=== PATIENT | male | born 1975 | race Two or more races ===

== ENCOUNTER 2020-05-21 11:16 | Outpatient (REF) | payer OTHER, SELFPAY ==
--- NOTE | 2020-05-26 08:58 | MHC.AU.P13 ---
Adult Audiological Evaluation Date of Visit: 05/21/20 Refractory Mixer Used: Nigerian- In Person Reason for Appointment: Audiologic re-evaluation due to perception of decreased hearing in the right ear. Patient lost his hearing aids and needs replacement. Previous Hearing Test Results: 12/26/2017 [facility] Moderately-severe to severe sensorineural hearing loss with 10% speech understanding for the right ear at 115 dB HL and 20% for the left ear at 110 dB HL Ear History: Family History of Hearing Loss?: Yes Hearing Instrument History- Right Ear: Heel Coverer: [employer] Model: Aurora iQ 1600 mini Imgjhkku-uj-rou Ear Lost hearing aid Warranty: Loss and Damage used 11/09/2018 Dispensed By: [facility] Date of Fittin01/30/2018 Hearing Instrument History- Left Ear: Heel Coverer: Skyler Model: Aurora iQ 1600 Vlpyibdq-rg-yin-Ear Lost hearing aid Service Plan: Loss and Damage used 11/09/2018 Dispensed By: [facility] Date of Fittin01/30/2018 Otoscopy: Right Ear: Unremarkable Left Ear: Unremarkable Tympanometry: Right Ear: Hypercompliant Middle Ear System (Type Ad) Left Ear: Hypercompliant Middle Ear System (Type Ad) Hearing Evaluation: Transducer(s) Used: Insert Earphones Bone Conduction Method: Conventional Audiometry Stimuli Used: Pure Tones Right Ear: Description of Hearing: Moderately-severe to severe sensorineural hearing loss Left Ear: Description of Hearing: Moderately-severe to severe sensorineural hearing loss Speech Recognition Threshold (SRT): Method Used: Monitored Live Voice Stimuli Used: Spondee Words Right Ear: 80 dB HL Left Ear: 70 dB HL Word Discrimination: Method: Monitored Live Voice Word Lists Used: Lista Bisil?bica (Nigerian) Right Ear: 24% at 105 dB HL Left Ear: 60% at 100 dB HL Comparison: Compared to most recent evaluation: Right ear thresholds have decreased 10-20 dB compared to 2018 results with the left ear being stable. Recommendations: Recommendations: Audiological re-evaluation in one year. Trial with amplification is recommended. Medical clearance from a physician is required before fitting. Hearing Aid Fitting will be scheduled when all materials arrive. See Hearing Aid Evaluation report for more information. Recommendations (Other): Sending prior authorization for new hearing aids to insurance. When authorization is received, will order aids and schedule a Hearing Aid Fitting appointment Diagnosis: Primary Diagnosis: H90.3 Bilateral Sensorineural Hearing Loss Services Performed: Services Performed: Comprehensive Audiological Evaluation (CPT 98098) Tympanometry (CPT 10504) Signature: Provider: Zurdo Valle, CCC-A
--- NOTE | 2020-05-26 09:02 | MHC.AU.MED ---
Medical Clearance for Hearing Instrumentation Date: 05/26/20 Patient Name: Otto Mcdaniels Date of : 1975 Dear Leni Rodriguez MD, We have seen your patient on 05/26/20 and have determined that they are a candidate for amplification (See accompanying report). Specifically, they would benefit from: Hearing aid use in both ears There is a statute that addresses Medical Evaluation Requirements prior to fitting a patient with a hearing aid. According to [place] statute 265 CMR:6.03(1), (a) General. Except as provided in 265 CMR 6.03(1)(b), a data center solutions architect shall not sell a hearing aid unless the prospective user has presented to the data center solutions architect a written statement signed by a licensed physician that states that the patient's hearing loss has been medically evaluated and the patient may be considered a candidate for a hearing aid. The medical evaluation must have taken place within the preceding six months. Please note: Due to the [place] Statute referenced above, we cannot accept a signature other than that of a licensed physician. SAND TECHNOLOGIST and PA signatures cannot be accepted. I am in agreement with the above recommendation. There is no medical contraindication for hearing instrumentation. Physician Signature Date Physician Name (Printed)
--- NOTE | 2020-05-26 09:18 | MHC.AU.P13 ---
Hearing Aid Evaluation- Binaural Date of Visit: 05/21/20 Stemhole Borer Used: Bulgarian- In Person Description of Hearing: Moderately-severe to severe sensorineural hearing loss bilaterally Summary: Dinahryan Prior Authorization to [facility] for new hearing aids. Patient has had significant difficulty with losing the aids due to face masks and work goggles he needs to wear, but aids fall off easily with the hrzwdc-tzf-voi style. Custom in-the-ear hearing aids recommended to reduce the chance of aids falling off the ears with mask and goggle use. Hearing Instrument Selection: Right Ear: Stock Broker Supervisor: Phonak Model: Virto M 70-312 Battery Size: 312 Color: Christy Left Ear: Stock Broker Supervisor: Phonak Model: Virto M 70-312 Battery Size: 312 Color: Christy Recommendations: Recommendations: Will order aids and schedule Hearing Aid Fitting when [facility] prior authorization is received. Impressions are in the HOLD drawer and order completed in the chart. Diagnosis Code(s): Primary Diagnosis: H90.3 Bilateral Sensorineural Hearing Loss Services Performed: Hearing Aid Evaluation and Earmold Impressions: Signature: Provider: Zurdo Valle, [facility]
== END 2020-05-21 11:17 | disposition home or self-care (01) ==
LOC: HO.SH 11:16
PROVIDERS: PCP Internal Medicine; Referring Provider Internal Medicine; Visit Provider Internal Medicine
DX: H91.90 Unspecified hearing loss, unspecified ear (principal)
CPT/HCPCS: 92557; 92567; 92591; V5275

== ENCOUNTER 2020-08-22 12:38 | Outpatient (REF) | payer OTHER, SELFPAY | END 2020-08-22 12:39 | disposition home or self-care (01) | LOC: HO.HAP 12:38 | PROVIDERS: Visit Provider Internal Medicine | DX: Z46.1 Encounter for fitting and adjustment of hearing aid (principal); H90.3 Sensorineural hearing loss, bilateral | CPT/HCPCS: 92595; V5011; V5020; V5160; V5259; V5260; V5266 ==

== ENCOUNTER 2021-08-13 15:49 | Outpatient (REF) | payer OTHER, SELFPAY | END 2021-08-13 15:50 | disposition home or self-care (01) | LOC: HO.HAP 15:49 | PROVIDERS: Visit Provider Internal Medicine | DX: Z13.89 Encounter for screening for other disorder (principal) ==

== ENCOUNTER 2021-08-28 11:03 | Outpatient (REF) | payer OTHER, SELFPAY ==
--- NOTE | 2021-08-28 13:22 | MHC.AU.HFU ---
Hearing Instrument Follow-Up- Binaural Date of Visit: 08/28/21 Etcher Apprentice Used: Macedonian- In Person Right Ear: Relocation Director: Phonak Model: VIRTO M50-312 Serial Number: [id number] Repair Warranty: 09/16/2023 Loss and Damage Warranty: 09/16/2023 Battery Size: 312 Type of Wax Guard: CeruStop Dispensed By: [facility] Date of Fittin01/30/2018 Left Ear: Relocation Director: Phonak Model: VIRTO M50-312 Serial Number: [id number] Repair Warranty: 09/16/2023 Loss and Damage Warranty: 09/16/2023 Battery Size: 312 Type of Wax Guard: CeruStop Dispensed By: [facility] Date of Fittin01/30/2018 Follow-Up Summary: Patient picked up his repaired right hearing aid. The settings could not be restored at [employer]. Reprogrammed the hearing aid back to the last settings and connected in the software to his left hearing aid. Discussed that he will likely need to re-pair the hearing aids to his phone. Patient would like hold off on pairing them back to his current phone, as it has not been working properly and he is planning on getting a new phone shortly. Demonstrated how to pair the hearing aids himself once he gets his new phone. Patient is always welcome to make an appointment to help with Bluetooth pairing if he needs assistance. Recommendations: Recommendations: Hearing instrument follow-up or maintenance as needed. Diagnosis Code(s): Primary Diagnosis: H90.3 Bilateral Sensorineural Hearing Loss Signature: Provider: Zurdo Cameron, LARRY-A
== END 2021-08-28 11:04 | disposition home or self-care (01) ==
LOC: HO.HAP 11:03
PROVIDERS: Visit Provider Internal Medicine
DX: Z13.89 Encounter for screening for other disorder (principal)

== ENCOUNTER 2021-11-27 10:38 | Outpatient (REF) | payer OTHER, SELFPAY | END 2021-11-27 10:39 | disposition home or self-care (01) | LOC: HO.HAP 10:38 | PROVIDERS: Visit Provider Internal Medicine | DX: Z13.89 Encounter for screening for other disorder (principal) ==

== ENCOUNTER 2021-12-11 10:59 | Outpatient (REF) | payer OTHER, SELFPAY | END 2021-12-11 11:00 | disposition home or self-care (01) | LOC: HO.HAP 10:59 | PROVIDERS: Visit Provider Internal Medicine | DX: Z13.89 Encounter for screening for other disorder (principal) ==

== ENCOUNTER 2021-12-22 | Outpatient (REF) | payer OTHER, SELFPAY ==
[2021-12-25 11:45] LABS: H Pylori Breath Test Positive (Negative)
== END 2021-12-22 00:01 | disposition home or self-care (01) ==
LOC: HO.LNP
PROVIDERS: Visit Provider Physician Assistant Surgical
DX: E66.01 Morbid (severe) obesity due to excess calories (principal)
CPT/HCPCS: 83013

== ENCOUNTER → 2021-12-22 13:03 | Outpatient (BNVA) | payer OTHER, SELFPAY | PROVIDERS: PCP Internal Medicine; Visit Provider Physician Assistant Surgical | DX: E66.01 Morbid (severe) obesity due to excess calories (principal); Z68.41 Body mass index [BMI] 40.0-44.9, adult | CPT/HCPCS: 99202; 99211 ==

== ENCOUNTER → 2022-01-05 14:07 | Outpatient (BNVA) | payer OTHER, SELFPAY | PROVIDERS: PCP Internal Medicine; Referring Provider Internal Medicine; Visit Provider Dietitian, Registered | DX: E66.01 Morbid (severe) obesity due to excess calories (principal); Z71.3 Dietary counseling and surveillance | CPT/HCPCS: 97802 ==

== ENCOUNTER → 2022-01-15 12:58 | Outpatient (BNVA) | payer OTHER, SELFPAY | PROVIDERS: PCP Internal Medicine; Visit Provider Physician Assistant Surgical | DX: Z01.818 Encounter for other preprocedural examination (principal); E66.9 Obesity, unspecified; Z68.38 Body mass index [BMI] 38.0-38.9, adult | CPT/HCPCS: 99212 ==

== ENCOUNTER 2022-03-24 10:50 | Outpatient (REF) | payer OTHER, SELFPAY ==
--- NOTE | 2022-03-24 13:03 | MHC.AU.HFU ---
Hearing Instrument Follow-Up- Binaural Date of Visit: 03/24/22 Right Ear: Glassware Selector: Phonak Model: VIRTO M50-312 Serial Number: [id number] Repair Warranty: 09/16/2023 Loss and Damage Warranty: Used Battery Size: 312 Type of Wax Guard: CeruStop Left Ear: Glassware Selector: Phonak Model: VIRTO M50-312 Serial Number: [id number] Repair Warranty: 09/16/2023 Loss and Damage Warranty: 09/16/2023 Battery Size: 312 Type of Wax Guard: CeruStop Follow-Up Summary: Patient reports he lost the right hearing aid and stepped on the left hearing aid. The loss and damage was already used on the right hearing aid, and it has been 2 years since his last audiological evaluation. He will need a new audiological evaluation before we can get a new hearing aid for his right ear. The left hearing aid was in several pieces, but the electronics looks in-tact. Sent left hearing aid to [facility] to see if it can be repaired. Had the patient sign a loss and damage form just in case it cannot be repaired, and will keep the form in his chart. Recommendations: Patient will be contacted when the left hearing aid has arrived. He should request an order for an updated audiological evaluation from his PCP. Diagnosis Code(s): Primary Diagnosis: H90.3 Bilateral Sensorineural Hearing Loss Signature: Provider: Zurdo Cameron, [facility]
== END 2022-03-24 10:51 | disposition home or self-care (01) ==
LOC: HO.HAP 10:50
PROVIDERS: Visit Provider Student in an Organized Health Care Education/Training Program
DX: Z13.89 Encounter for screening for other disorder (principal)

== ENCOUNTER 2022-04-09 13:47 | Outpatient (REF) | payer OTHER, SELFPAY | END 2022-04-09 13:48 | disposition home or self-care (01) | LOC: HO.HAP 13:47 | PROVIDERS: Visit Provider Internal Medicine | DX: Z13.89 Encounter for screening for other disorder (principal) ==

== ENCOUNTER → 2022-11-12 10:01 | Outpatient (BNVA) | payer OTHER, SELFPAY | PROVIDERS: PCP Internal Medicine; Referring Provider Nurse Practitioner Family; Visit Provider Surgery | DX: K64.9 Unspecified hemorrhoids (principal) | CPT/HCPCS: 99202 ==

== ENCOUNTER 2022-12-03 10:17 | Outpatient (REF) | payer OTHER, SELFPAY ==
--- NOTE | ~2022-12-03 | XR_ITS ---
EXAMINATION: LEFT WRIST CLINICAL INFORMATION: Pain COMPARISON: None available. TECHNIQUE: 4 views left wrist FINDINGS: No significant bone, joint or soft tissue abnormality is seen. XR/XR wrist LT w scaphoid IMPRESSION: Unremarkable examination.
[2022-12-03 10:33] LABS: MANUAL DIFF FLAG NO
[2022-12-03 10:52] LABS: Prothrombin Time 11.2 SEC (10.0-13.1)
[2022-12-03 10:55] LABS: Basophils Percent Auto 0.7 % (0-2); Eosinophils Absolute Auto 0.1 X10*3/uL (0.0-0.4); Eosinophils Percent Auto 1.7 % (0-4); Hematocrit 42.7 % (42.0-52.0); Hemoglobin 14.1 g/dl (14.0-18.0); Imm Gran Abs Auto 0.01 X10*3/uL (0.00-0.03); Imm Gran Pct Auto 0.2 % (0.0-0.4); Lymphocytes Absolute Auto 1.9 X10*3/uL (1.2-4.9); Lymphocytes Percent Auto 32.6 % (20-40); Mean Corpuscular Volume 87.7 fL (80.0-98.0); Mean Platelet Volume 10.4 fL (9.4-12.4); Monocytes Absolute Auto 0.5 X10*3/uL (0.1-1.2); Monocytes Percent Auto 8.1 % (2-11); Neutrophils Absolute Auto 3.3 x10*3/uL (2.0-8.3); Neutrophils Percent Auto 56.7 % (45-73); Platelet Count 237 X10*3/uL (160-400); Red Blood Count 4.87 X10*6/uL (4.60-5.80); Red Cell Distribution Width 12.6 % (11.0-16.0); White Blood Count 5.8 X10*3/uL (4.8-10.8)
[2022-12-03 11:30] LABS: Alanine Aminotransferase 14 U/L (0-40); Albumin Level 3.9 g/dL (3.5-5.0); Alkaline Phosphatase 57 U/L (39-117); Anion Gap 10 (12-20); Aspartate Amino Transferase 25 U/L (5-37); Bilirubin Total 1.4 mg/dL (0.0-1.0); Blood Urea Nitrogen 10 mg/dL (9-16); Calcium 9.2 mg/dL (8.4-10.2); Carbon Dioxide 29 mmol/L (22-29); Chloride 106 mmol/L (96-108); Cholesterol 206 mg/dL; Estimated Glomerular Filt Rate > 60; Glucose Fasting 103 mg/dL (60-99); HDL Cholesterol 46 mg/dL; LDL Cholesterol Calculated 138 mg/dl; Potassium 4.5 mmol/L (3.3-5.1); Sodium 140 mmol/L (135-145); Total Protein 6.9 g/dL (6.5-8.0); Triglycerides 112 mg/dL
[2022-12-03 12:01] LABS: Folate 13.2 ng/mL (> or = 4.0); TSH reflex Free T4 2.11 uIU/mL (0.32-4.0); Vitamin B12 338 pg/mL (200-900)
== END 2022-12-03 10:18 | disposition home or self-care (01) ==
LOC: HO.LAB 10:17
PROVIDERS: Visit Provider Nurse Practitioner Family
DX: Z01.818 Encounter for other preprocedural examination (principal); M25.532 Pain in left wrist; Z76.89 Persons encountering health services in other specified circumstances
CPT/HCPCS: 36415; 73110; 80053; 80061; 82306; 82607; 82746; 84443; 85025; 85610

== ENCOUNTER → 2022-12-07 10:08 | Outpatient (REF) | payer OTHER, SELFPAY ==
--- NOTE | 2022-12-07 10:13 | ECG_ITS ---
Test Reason : z76.89 Blood Pressure : / mmHG Vent. Rate : 062 BPM Atrial Rate : 062 BPM P-R Int : 164 ms QRS Dur : 082 ms QT Int : 404 ms P-R-T Axes : 063 067 024 degrees QTc Int : 410 ms Normal sinus rhythm with sinus arrhythmia Normal ECG No previous ECGs available Referred By: Marycruz Moreno Electronically Signed By:BLAKE COHEN MD
== END ==
LOC: HO.CARD 10:08
PROVIDERS: PCP Nurse Practitioner Family; Visit Provider Nurse Practitioner Family
DX: Z01.818 Encounter for other preprocedural examination (principal); Z76.89 Persons encountering health services in other specified circumstances
CPT/HCPCS: 93005

== ENCOUNTER 2023-03-09 08:48 | Outpatient (REF) | payer OTHER, SELFPAY ==
--- NOTE | 2023-03-09 09:37 | MHC.AU.MED ---
Medical Clearance for Hearing Instrumentation Date: 03/09/23 Patient Name: Otto Mcdaniels Date of : 1975 Primary Care Provider: DARLEEN Ku We have seen your patient on 03/09/23 and have determined that they are a candidate for amplification (See accompanying report). Specifically, they would benefit from: Hearing aid use in both ears There is a statute that addresses Medical Evaluation Requirements prior to fitting a patient with a hearing aid. According to [place] statute 265 CMR:6.03(1), (a) General. Except as provided in 265 CMR 6.03(1)(b), a deaf and hard of hearing teacher shall not sell a hearing aid unless the prospective user has presented to the deaf and hard of hearing teacher a written statement signed by a licensed physician that states that the patient's hearing loss has been medically evaluated and the patient may be considered a candidate for a hearing aid. The medical evaluation must have taken place within the preceding six months. Please note: Due to the [place] Statute referenced above, we cannot accept a signature other than that of a licensed physician. IMPLEMENT MECHANIC and PA signatures cannot be accepted. I am in agreement with the above recommendation. There is no medical contraindication for hearing instrumentation. Physician Signature Date Physician Name (Printed)
--- NOTE | 2023-03-09 11:35 | MHC.AU.HA3 ---
Hearing Instrument Follow-Up- Binaural Date of Visit: 03/09/23 Right Ear: Martin, Model, Color, Serial Number: Robe Donald [id number] SN: [id number] Color: Christy Inside Sales Agent Repair Warranty: 09/16/2023 Inside Sales Agent Loss and Damage Warranty: USED Battery Size: 312 Travel Physical Therapist/Slim Tube: Power Type of Wax Guard: CeruStop Dispensed By: [facility] Date of Fittin08/22/2020 Left Ear: Martin, Model, Color, Serial Number: Robe Donald [id number] SN: [id number] Color: Christy Inside Sales Agent Repair Warranty: 09/16/2023 Inside Sales Agent Loss and Damage Warranty: 09/16/2023 Battery Size: 312 Travel Physical Therapist/Slim Tube: Power Type of Wax Guard: CeruStop Dispensed By: [facility] Date of Fittin08/22/2020 Follow-Up Summary: Interpreted by Radha ([facility] Speech & Hearing front desk clerk) - Attempted [place]an phone vp corporate partnerships; however, Otto could not hear or understand the vp corporate partnerships via phone. Otto reported that he lost his right hearing aid and his left hearing aid is broken with missing pieces (did not bring to this appointment). Discussed cochlear implant due to poor speech discrimination. Otto is not ready to pursue CI evaluation. He has realistic expectations of hearing aids and has opted to continue with hearing aids at this time. Recommended contacting [facility] for CI evaluation when he is ready. The left hearing aid can be replaced via L&D warranty - Otto signed the L&D form and it was faxed to [email or web address]. The right L&D has already been used - Will need to obtain medical clearance and prior approval through insurance to replace the right hearing aid. Otto requested that the left hearing aid be fit as soon as it arrives. He understands that it will take longer to order the right hearing aid due to wait for medical clearance and insurance approval. Recommendations: tOto will be contacted when left hearing aid arrives for fitting. Right hearing aid will be ordered pending medical clearance and insurance approval which will then be fit at a later date. Diagnosis Code(s): Primary Diagnosis: H90.3 Bilateral Sensorineural Hearing Loss Signature: Provider: Eze Garcia, [facility]
== END 2023-03-09 08:49 | disposition home or self-care (01) ==
LOC: HO.SH 08:48
PROVIDERS: Visit Provider Nurse Practitioner Family
DX: Z01.118 Encounter for examination of ears and hearing with other abnormal findings (principal); H90.3 Sensorineural hearing loss, bilateral
CPT/HCPCS: 92557

== ENCOUNTER 2023-04-13 15:34 | Outpatient (REF) | payer OTHER, SELFPAY | END 2023-04-13 15:35 | disposition home or self-care (01) | LOC: HO.HAP 15:34 | PROVIDERS: Visit Provider Nurse Practitioner Family | DX: Z46.1 Encounter for fitting and adjustment of hearing aid (principal); H90.3 Sensorineural hearing loss, bilateral | CPT/HCPCS: 92592 ==

== ENCOUNTER 2023-05-27 15:05 | Outpatient (REF) | payer OTHER, SELFPAY ==
--- NOTE | 2023-05-30 09:31 | MHC.AU.HA4 ---
Hearing Instrument Fitting- Adult- Right Ear Date of Visit: 05/27/23 Roast Master Used: Hearing Instruments Dispensed: Right Ear: Make, Model, Color, Serial Number: Robe Donald [id number] SN: [id number] Color: Christy Stock Plan Administrator Repair Warranty: 07/19/2026 Stock Plan Administrator Loss and Damage Warranty: 07/19/2026 [facility] Service Plan: Battery Size: 312 Social Worker Clinical/Slim Tube: Power Earmold/Dome/CShell/SlimTip: Type of Wax Guard: CeruStop Summary of Fitting: Otto visited for dispensing of his new right hearing aid. Paired with recent left L&D, verified using real ear measurements. Follow up as needed. Recommendations: Hearing Instrument maintenance in 6 months, or sooner if needed. Please call our clinic with any questions or concerns. Diagnosis Code(s): Primary Diagnosis: H90.3 Bilateral Sensorineural Hearing Loss Signature: Provider: Zurdo Tomlinson, CCC-A
== END 2023-05-27 15:06 | disposition home or self-care (01) ==
LOC: HO.HAP 15:05
PROVIDERS: Visit Provider Internal Medicine
DX: Z46.1 Encounter for fitting and adjustment of hearing aid (principal); H90.3 Sensorineural hearing loss, bilateral
CPT/HCPCS: V5011; V5020; V5241; V5255

== ENCOUNTER 2023-11-01 10:39 | Outpatient (REF) | payer OTHER, SELFPAY | END 2023-11-01 10:40 | disposition home or self-care (01) | LOC: HO.HAP 10:39 | PROVIDERS: Visit Provider Nurse Practitioner Family | DX: Z46.1 Encounter for fitting and adjustment of hearing aid (principal) | CPT/HCPCS: 92592 ==

== ENCOUNTER 2023-11-16 15:00 | Outpatient (REF) | payer OTHER, SELFPAY | END 2023-11-16 15:01 | disposition home or self-care (01) | LOC: HO.HAP 15:00 | PROVIDERS: Visit Provider Nurse Practitioner Family | DX: Z13.89 Encounter for screening for other disorder (principal) ==

== ENCOUNTER 2023-11-29 09:15 | Outpatient (AMB) | payer OTHER, SELFPAY ==
[2023-11-29 09:25] VITALS: BP 132/72; PULSE 64; O2SAT 96; BMI 37.1
--- NOTE | 2023-11-29 09:25 | A.OFFPC_ITS ---
Vital Signs 11/29/23 09:25 Height 5 ft 7 in Weight 237 lb 2 oz BMI 37.1 BP 132/72 Blood Pressure Location Lt brachial Position Sitting Pulse 64 Pulse Source Pulse Oximeter Pulse Oximetry (%) 96 Oxygen Delivery Method Room Air Intake Visit Reasons: Referral Kiln Charger Required: No Accompanied by: Spouse Allergies No Known Allergies [No Known Allergies*] Allergy (Verified 11/29/23 09:42) Medication List - Last Reconciled 11/29/23 by Leni Rodriguez MD cholecalciferol (vitamin D3) 25 mcg PO DAILY Tobacco use date assessed: 11/29/23 Dental Screening Dental Screen Date: 11/29/23 Did you have a dental visit in the last 12 months?: Yes Did you have a dental problem in the last 6 months where you did not have access to dental care?: No Was dental information given to patient?: Patient has dentist HPI HPI Comments History of Present Illness Details This is a 48-year-old male with bilateral hearing loss that comes accompanied by for his physical exam. Denies any chest pain or shortness of breath. He needs a referral for ENT for evaluation of bilateral cochlear implant. Has never had a colonoscopy. No change in bowel or bladder habits. Complains of a tender right submandibular lymphadenopathy. [facility] Medical History (Updated 11/29/23 @ 11:58 by Leni Rodriguez MD) Morbid obesity Encounter to establish care Hearing loss Surgical History No history of previous surgery Family History (Updated 11/29/23 @ 09:47 by Leni Rodriguez MD) Mother HIV (human immunodeficiency virus infection) Father HIV (human immunodeficiency virus infection) Son No problems noted. Son No problems noted. Son No problems noted. Daughter No problems noted. Daughter No problems noted. Daughter No problems noted. Social History Housing: Apartment Alcohol intake: never Patient Tobacco Use Status: Never used Tobacco e-Cigarette/Vaping Use: Never Used service: No Cognitive needs: No Hearing needs: Yes Vision needs: Yes Questionnaire PHQ-9 Over the last 2 weeks, how often have you been bothered by any of the following problems? 1. Little interest or pleasure in doing things: not at all 2. Feeling down, depressed, or hopeless: not at all 3. Trouble falling or staying asleep, or sleeping too much: not at all 4. Feeling tired or having little energy: not at all 5. Poor appetite or overeating: not at all 6. Feeling bad about yourself - or that you are a failure or have let yourself or your family down: not at all 7. Trouble concentrating on things, such as reading the newspaper or watching television: not at all 8. Moving or speaking so slowly that other people could have noticed. Or the opposite - being so fidgety or restless that you have been moving around a lot more than usual: not at all 9. Thoughts that you would be better off or of hurting yourself in some way: not at all Total score: 0 Depression Screening Interpretation: Negative Depression Screening Done: Yes 94638 - PHQ-9 Billing: Yes Source: Developed by Drs. Romie Zabala, Addis Dc, Enoch Adams and colleagues, with an educational carri from [employer]. Thrive Questionnaire Date Thrive assessed: 11/29/23 I am a: Patient What is your living situation today?: I have a steady place to live Within the past 12 months, did the food you bought not last and you didn't have the money to get more?: Never true Within the past 12 months, did you worry whether your food would run out before you got money to buy more?: Never true Do you have trouble paying for medicines?: No Do you have trouble getting transportation to medical appointments?: No Do you have trouble paying your heating and electricity bill?: No Do you have trouble taking care of your child, family member or friend?: No Do you have trouble with day-to-day activities such as bathing, preparing meals, shopping, managing finances, etc.?: No Are you currently unemployed and looking for a job?: No Are you interested in more education?: No Please select the resources that you would like help with: None Currently or been in a relationship where the following occur: no concerns reported THRIVE Score: 0 AUDIT C Alcohol Use Questionnaire (AUDIT-C) 1. How often do you have a drink containing alcohol?: Never 3. How often do you have six or more drinks on one occasion?: Never Total Score: 0 Score Reviewed/Action Taken: No MARTY-7 AMB Questionnaire MARTY-7 Date MARTY - 7 assessed: 11/29/23 Feeling nervous, anxious, or on edge: 0 = Not at all Not being able to stop or control worryin = Not at all Worrying too much about different things: 0 = Not at all Trouble relaxin = Not at all Being so restless that it is hard to sit still: 0 = Not at all Becoming easily annoyed or irritable: 0 = Not at all Feeling afraid as if something awful might happen: 0 = Not at all Total MARTY-7 score (0-4 normal; 5-9 mild; 10-14 moderate; 15-21 severe): 0 Source: Developed by Drs. Romie Zabala, Addis Dc, Enoch Adams and colleagues, with an educational carri from [employer]. MARTY-7 Assessment Billing MARTY-7 Assessment Tool: MARTY-7 Assessment 83802 Review of Systems Const All systems reviewed & are unremarkable except as noted in HPI and below ENT Reports hearing loss Card Denies chest pain at rest, Denies chest pain with activity, Denies edema, Denies irregular heart rhythm, Denies claudication, Denies dyspnea, Denies dyspnea on exertion, Denies orthopnea, Denies paroxysmal nocturnal dyspnea and Denies slow heart rate Resp Denies cough, Denies dyspnea and Denies dyspnea on exertion GI Denies abdominal pain, Denies change in bowel habits, Denies excessive flatus, Denies nausea and Denies vomiting Denies urinary hesitancy, Denies urinary incontinence and Denies urinary urgency Musc Denies abnormal gait, Denies atrophy, Denies deformity and Denies limited range of motion Neuro Denies abnormal gait, Denies behavioral changes, Denies confusion and Denies l ack of coordination Psych Denies behavioral changes and Denies confusion Physical exam (Primary Care) Vital Signs: Last Vital Signs Pulse 64 11/29/23 09:25 BP 132/72 11/29/23 09:25 Pulse Ox 96 11/29/23 09:25 Oxygen Delivery Method Room Air 11/29/23 09:25 BMI result Body Mass Index 37.1 BMI Assessment/Plan discussion: High BMI High, discussed plan: lifestyle, weight reduction, dietary and physical activity Tobacco/Smoking Status: Tobacco use Status Tobacco use date assessed 11/29/23 11/29/23 09:33 Patient Tobacco Use Status Never used Tobacco 11/29/23 09:33 e-Cigarette/Vaping Use Never Used 11/29/23 09:33 PHQ-9: PHQ-9 Score PHQ-9: Total score 0 11/29/23 09:59 Depression Screening Interpretation: Negative Thrive Assessment: Date of Thrive Assessment Date Thrive assessed 11/29/23 11/29/23 09:33 Currently or been in a relationship where the following occur: no concerns reported Const General: No confusion Orientation/consciousness: patient oriented x3 and No confusion HENMT Head: Yes normal to inspection, Yes normocephalic and Yes atraumatic Ears: hearing grossly impaired bilaterally Eyes General: appearance normal, both eyes and all related structures Eyelids: Yes eyelids normal Conjunctivae: conjunctivae normal Neck Neck: Yes normal visual inspection, Yes supple and Yes tender Lymphatic: lymphadenopathy (right submandibular) Resp Effort & Inspection: normal respiratory effort Auscultation: clear to auscultation bilaterally Cardio Jugular venous distension: no JVD Rate: regular rate Rhythm: regular rhythm Heart sounds: S1 normal heart sound present and S2 normal heart sound present GI Inspection: Yes normal to inspection Palpation (GI): Soft to palpation and nontender Auscultation: normal bowel sounds Skin General skin exam: no rashes or lesions noted Neuro General: patient oriented x3, no focal motor deficits and No confusion Extrem General: Yes full ROM Psych Appearance: grossly normal Immunizations pneumoc 20-rossi conj-dip cr(PF) 0.5 mL IM syringe Performing Provider: Leni Rodriguez MD Performing Location: [facility] Administered by: DARCI Martins on 11/29/23 10:00 Dose Route Admin Location Dispensed Lot Number Expiration Date NDC Traveling Sales Representative 0.5 mL IM Right Deltoid 0.5 mL [id number] 10/25/24 9076-9686-30 Privepass/Med fusion VIS Given Date VIS Provided VIS Publication Date 11/29/23 Single Vaccine 21 Eligibility Eligibility Date Funding Source Not [facility] Eligible 11/29/23 Private Assessment and Plan Assessment & Plan (1) Physical exam: Code(s): Z00.00 - Encounter for general adult medical examination without abnormal findings Plan: Repeat in a year. Orders: Orders US soft tiss head and/or neck Today R59.0 - Localized enlarged lymph nodes Comprehensive [place]. Panel Fast Today Z00.00 - Encounter for general adult medical examination without abnormal findings Lipid Panel Today Z00.00 - Encounter for general adult medical examination without abnormal findings Vitamin D 25-OH Total Today E55.9 - Vitamin D deficiency, unspecified, R79.89 - Other specified abnormal findings of blood chemistry ECG 12 lead EKG Today Z01.818 - Encounter for other preprocedural examination Pneumococcal 20 Immunization Today Z23 - Encounter for immunization Referrals Ear/Nose/Throat Referral H91.90 - Unspecified hearing loss, unspecified ear Coding Level of Care Code Est Pt Prev Care 40-64y(02028) Diagnoses Physical exam Z00.00 Additional Codes MARTY-7 Assessment Billing - MARTY-7 Assessment Tool: MARTY-7 Assessment 20871 ([id number]) Time Spent (min) 33
== END 2023-11-29 10:01 | disposition home or self-care (01) ==
PROVIDERS: PCP Nurse Practitioner Family; Visit Provider Internal Medicine
DX: Z00.00 Encounter for general adult medical examination without abnormal findings (principal); Z23 Encounter for immunization
CPT/HCPCS: 90471; 90677; 99396

== ENCOUNTER 2023-12-06 13:28 | Outpatient (REF) | payer OTHER, SELFPAY ==
--- NOTE | ~2023-12-06 | US_ITS ---
EXAMINATION: US SOFT TISSUE NECK CLINICAL INFORMATION: Localized enlarged lymph nodes. Right submandibular lymphadenopathy. COMPARISON: None available. TECHNIQUE: Ultrasound of the neck soft tissues was performed with high-frequency koroma-scale imaging and color Doppler in the right submandibular area in the region of concern. Radiologist was not in attendance. Images were later provided for interpretation. Radiologist did discuss the findings with the airframe and power plant mechanic at the time of interpretation. FINDINGS: Targeted ultrasound images were obtained by the airframe and power plant mechanic of the area of concern as indicated by the patient in the right submandibular region. There is a 2.0 x 0.5 x 0.6 cm wider than tall hypoechoic soft tissue lesion characteristic of an atypical lymph node, in the area of concern indicated by the patient inferior to the right submandibular gland. US/US soft tiss head and/or neck IMPRESSION: 2.0 cm hypoechoic soft tissue lesion characteristic of an atypical lymph node, in the area of concern indicated by the patient inferior to the right submandibular gland. Correlation with clinical exam recommended to determine further management. Recommend follow-up imaging in 2-3 months.
== END 2023-12-06 13:29 | disposition home or self-care (01) ==
LOC: HO.US 13:28
PROVIDERS: PCP Internal Medicine; Visit Provider Internal Medicine
DX: R59.0 Localized enlarged lymph nodes (principal)
CPT/HCPCS: 76536

== ENCOUNTER → 2023-12-14 08:54 | Outpatient (REF) | payer OTHER, SELFPAY ==
[2023-12-14 11:13] LABS: Alanine Aminotransferase 14 U/L (0-40); Albumin Level 4.1 g/dL (3.5-5.0); Alkaline Phosphatase 69 U/L (39-117); Anion Gap 11 (12-20); Aspartate Amino Transferase 19 U/L (5-37); Bilirubin Total 0.9 mg/dL (0.0-1.0); Blood Urea Nitrogen 17 mg/dL (9-16); Calcium 9.3 mg/dL (8.4-10.2); Carbon Dioxide 29 mmol/L (22-29); Chloride 105 mmol/L (96-108); Cholesterol 218 mg/dL (<200); Estimated Glomerular Filt Rate > 60; Glucose Fasting 93 mg/dL (60-99); HDL Cholesterol 43 mg/dL (>40); LDL Cholesterol Calculated 143 mg/dL (<100); Potassium 3.5 mmol/L (3.3-5.1); Sodium 141 mmol/L (135-145); Total Protein 7.7 g/dL (6.5-8.0); Triglycerides 161 mg/dL (<150)
[2023-12-14 11:31] LABS: Vitamin D 25-OH Total 30.3 ng/mL (>30)
== END ==
LOC: HO.CARD 08:54
PROVIDERS: PCP Internal Medicine; Visit Provider Internal Medicine
DX: Z00.00 Encounter for general adult medical examination without abnormal findings (principal); E55.9 Vitamin D deficiency, unspecified; R79.89 Other specified abnormal findings of blood chemistry
CPT/HCPCS: 36415; 80053; 80061; 82306

== ENCOUNTER 2024-04-23 11:55 | Outpatient (REF) | payer OTHER, SELFPAY ==
--- NOTE | 2024-04-23 16:16 | MHC.AU.HA3 ---
Hearing Instrument Follow-Up- Binaural Date of Visit: 04/23/24 Right Ear: Make, Model, Color, Serial Number: [employer] [id number] SN: [id number] Color: Christy Rn Ambulatory Repair Warranty: 07/19/2026 Rn Ambulatory Loss and Damage Warranty: 07/19/2026 [facility] Service Plan: Battery Size: 312 Shell Coremaker/Slim Tube: Power Earmold/Dome/CShell/SlimTip: Type of Wax Guard: CeruStop Dispensed By: [facility] Date of Fittin08/22/2020 Left Ear: Make, Model, Color, Serial Number: Robe [employer] [id number] SN: [id number] Color: Christy Rn Ambulatory Repair Warranty: 11/15/2023 Rn Ambulatory Loss and Damage Warranty: USED [facility] Service Plan: Battery Size: 312 Shell Coremaker/Slim Tube: Power Earmold/Dome/CShell/SlimTip: Type of Wax Guard: CeruStop Dispensed By: [facility] Date of Fittin08/22/2020 Follow-Up Summary: Left aid dropped off, shell broken. [facility] [employer] [facility] Recommendations: Recommendations: Patient will be contacted when materials have arrived. Diagnosis Code(s): Primary Diagnosis: H90.3 Bilateral Sensorineural Hearing Loss Signature: Provider: Eze Alonso, [facility]
== END 2024-04-23 11:56 | disposition home or self-care (01) ==
LOC: HO.HAP 11:55
PROVIDERS: Visit Provider Internal Medicine
DX: Z13.89 Encounter for screening for other disorder (principal)

== ENCOUNTER → 2024-05-01 11:06 | Outpatient (BNVA) | payer OTHER, SELFPAY | PROVIDERS: PCP Internal Medicine; Visit Provider Surgery ==

== ENCOUNTER 2024-05-09 15:58 | Outpatient (REF) | payer OTHER, SELFPAY ==
--- NOTE | 2024-05-09 16:46 | MHC.AU.HA3 ---
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 Aids paired together. Also replaced battery and wax guard on the right. Tested VC function. Listening check positive. Returned both aids to Otto in the waiting room. Recommendations: Recommendations: Hearing instrument follow-up or maintenance as needed. Diagnosis Code(s): Primary Diagnosis: H90.3 Bilateral Sensorineural Hearing Loss Signature: Provider: Eze Alonso, [facility]
== END 2024-05-09 15:59 | disposition home or self-care (01) ==
LOC: HO.HAP 15:58
PROVIDERS: Visit Provider Internal Medicine
DX: Z46.1 Encounter for fitting and adjustment of hearing aid (principal); H90.3 Sensorineural hearing loss, bilateral
CPT/HCPCS: V5014

== ENCOUNTER → 2024-05-14 07:44 | Outpatient (BNVA) | payer OTHER, SELFPAY | PROVIDERS: PCP Internal Medicine; Visit Provider Surgery ==

== ENCOUNTER 2024-05-14 10:25 | Outpatient (AMB) | payer OTHER, SELFPAY ==
--- NOTE | 2024-05-14 11:09 | MHC.OFFVISWM ---
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 He decided to continue on his own but he gained weight back and now wants to proceed with bariatric surgery. Previous weight loss efforts: [facility] [place] program Wakes up: 7am sleeps: 12am [facility] Medical History (Updated 05/14/24 @ 13:39 by Mahendra Rico MD) Hyperlipidemia BMI 37.0-37.9, adult Morbid obesity Encounter to establish care Hearing loss Surgical History No history of previous surgery Family History Mother HIV (human immunodeficiency virus infection) Father HIV (human immunodeficiency virus infection) Son No problems noted. Son No problems noted. Son No problems noted. Daughter No problems noted. Daughter No problems noted. Daughter No problems noted. Social History Housing: Apartment Alcohol intake: never Patient Tobacco Use Status: Never used Tobacco e-Cigarette/Vaping Use: Never Used service: No Cognitive needs: No Hearing needs: Yes Vision needs: Yes Physical Exam Vital Signs: Last Vital Signs Temp 98.4 F 05/14/24 11:17 Pulse 84 05/14/24 11:17 BP 141/84 H 05/14/24 11:17 Pulse Ox 95 05/14/24 11:17 Oxygen Delivery Method Room Air 05/14/24 11:17 BMI result Body Mass Index 38.2 GI Inspection: Yes normal to inspection (Android body habitus) and Yes obesity Palpation (GI): Soft to palpation Extrem Right lower extremity: normal to inspection Left lower extremity: normal to inspection Assessment & Plan Assessment & Plan (1) Obesity (BMI 30-39.9): Code(s): E66.9 - Obesity, unspecified Category: Medical Plan: 1.? Plan for lap sleeve gastrectomy. If diaphragmatic or ventral hernias are present at time of surgery, these will be repaired laparoscopically as well. 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 I emphasized the importance of close follow-up, adherence to instructions and good communication. 2. Nutritional counseling. Start with 2 Pure protein (buy at [employer], [employer]) shakes (1/2 scoop in 8oz low fat unsweetened almond milk each) at 8am-10am and 11am-1pm, 1 Celebrate protein bar (buy at the hospital's gift shop) at 2pm-4pm, dinner at 5pm (8 forks of protein and 8 forks of salad/vegetables), one more protein bar after dinner at 7pm-9pm and one more Pure protein shake with HALF scoop in 8oz almond milk at 10pm-12am (midnight). So you do 3 protein shakes, 2.5 protein bars and one meal per day. Meal to include lean meat (beef, fish, pork, turkey, chicken), or wolof yogurt, or egg whites, or beans with a salad with olive oil and fruits (berries, pears, apples, kiwi). Avoid salt, breads, potatoes, rice, pasta, desserts. 3. Each shake would be drunk slowly, like coffee in a period of 2 hours. 4. Cut each bar in 4 pieces and eat each piece in 30min ?to make each bar last 2 hours. 5. I emphasized the importance of measuring accurately the food portion and measure it when serving the food in plate 6. The meal portions include 8 full-size forks of meat and 8 full-size forks of salad. You always eat the meat portion but you can replace up to 4 forks for salad/vegetables with rice, potatoes or pasta, or a fruit ?if you like. The less you do it the better weight loss will be. 7. One full-size fork is what it can be scooped on the fork without falling aside and not what can be bit with the fork. Use regular forks like those you find in a typical restaurant. 8.? Please send me weight measurements as soon as possible and then once a week. Always include your diet and exercise plan. 9. Start treadmill with an incline of 2.0 and speed of 3.0. Increase incline by 1 every 3 min to a max incline of 8.0, stay 3min at 8.0 and then return to 2.0 and repeat same steps until calorie goal is met. Goal is to burn 2000 calories per week on exercise, which means either 300 calories daily, or 400 calories 5 days per week, or 500 calories 4 days per week, or 650 calories 3 days per week. 10. Goal is to lose at least 1.5-2lbs per week 11. Goal to lose 10% of your weight before surgery, which is about 24lbs. Ultimate weight goal: 218lbs before surgery 12. Please follow the diet plan exactly without any change. If you don't like something about the plan or you feel hungry you need to communicate with me so I can help you revise the plan. You should not change the plan yourself. 13. To be scheduled for EGD to assess the stomach's anatomy. The possibility of biopsies was discussed. Patient needs to avoid use of NSAIDs and aspirin for 1 week prior to EGD. Risks of perforation and bleeding was discussed with the patient. This will be an outpatient procedure with IV sedation. Orders: Orders Lipid Panel Today E66.9 - Obesity, unspecified, E78.5 - Hyperlipidemia, unspecified, Z68.37 - Body mass index [BMI] 37.0-37.9, adult Comprehensive Met. Panel Today E66.9 - Obesity, unspecified, E78.5 - Hyperlipidemia, unspecified, Z68.37 - Body mass index [BMI] 37.0-37.9, adult Vitamin B12 and Folate Today E66.9 - Obesity, unspecified, E78.5 - Hyperlipidemia, unspecified, Z68.37 - Body mass index [BMI] 37.0-37.9, adult Vitamin B1 Today E66.9 - Obesity, unspecified, E78.5 - Hyperlipidemia, unspecified, Z68.37 - Body mass index [BMI] 37.0-37.9, adult Vitamin A Today E66.9 - Obesity, unspecified, E78.5 - Hyperlipidemia, unspecified, Z68.37 - Body mass index [BMI] 37.0-37.9, adult Insulin Today E66.9 - Obesity, unspecified, E78.5 - Hyperlipidemia, unspecified, Z68.37 - Body mass index [BMI] 37.0-37.9, adult Hemoglobin A1c Today E66.9 - Obesity, unspecified, E78.5 - Hyperlipidemia, unspecified, Z68.37 - Body mass index [BMI] 37.0-37.9, adult H Pylori Breath Test Today E66.9 - Obesity, unspecified, E78.5 - Hyperlipidemia, unspecified, Z68.37 - Body mass index [BMI] 37.0-37.9, adult Complete Blood Count Auto Diff Today E66.9 - Obesity, unspecified, E78.5 - Hyperlipidemia, unspecified, Z68.37 - Body mass index [BMI] 37.0-37.9, adult IRON PROFILE Today E66.9 - Obesity, unspecified, E78.5 - Hyperlipidemia, unspecified, Z68.37 - Body mass index [BMI] 37.0-37.9, adult Zinc Today E66.9 - Obesity, unspecified, E78.5 - Hyperlipidemia, unspecified, Z68.37 - Body mass index [BMI] 37.0-37.9, adult C Reactive Protein Today E66.9 - Obesity, unspecified, E78.5 - Hyperlipidemia, unspecified, Z68.37 - Body mass index [BMI] 37.0-37.9, adult TSH reflex Free T4 Today E66.9 - Obesity, unspecified, E78.5 - Hyperlipidemia, unspecified, Z68.37 - Body mass index [BMI] 37.0-37.9, adult Ferritin Today E66.9 - Obesity, unspecified, E78.5 - Hyperlipidemia, unspecified, Z68.37 - Body mass index [BMI] 37.0-37.9, adult Vitamin D 25-OH Total Today E66.9 - Obesity, unspecified, E78.5 - Hyperlipidemia, unspecified, Z68.37 - Body mass index [BMI] 37.0-37.9, adult US abdomen comp w elastography Today E66.9 - Obesity, unspecified, E78.5 - Hyperlipidemia, unspecified, Z68.37 - Body mass index [BMI] 37.0-37.9, adult XR chest 2V Today E66.9 - Obesity, unspecified, E78.5 - Hyperlipidemia, unspecified, Z68.37 - Body mass index [BMI] 37.0-37.9, adult ECG 12 lead EKG Today E66.9 - Obesity, unspecified, E78.5 - Hyperlipidemia, unspecified, Z68.37 - Body mass index [BMI] 37.0-37.9, adult FL upper GI w air Today E66.9 - Obesity, unspecified, E78.5 - Hyperlipidemia, unspecified, Z68.37 - Body mass index [BMI] 37.0-37.9, adult Referrals Behavioral Health Referral E66.9 - Obesity, unspecified, E78.5 - Hyperlipidemia, unspecified, Z68.37 - Body mass index [BMI] 37.0-37.9, adult Nutrition/Dietitian Referral E66.9 - Obesity, unspecified, E78.5 - Hyperlipidemia, unspecified, Z68.37 - Body mass index [BMI] 37.0-37.9, adult
[2024-05-14 11:17] VITALS: BP 141/84; PULSE 84; TEMP 36.9; O2SAT 95; BMI 38.2
== END 2024-05-14 13:49 | disposition home or self-care (01) ==
PROVIDERS: PCP Internal Medicine; Visit Provider Surgery
DX: E66.9 Obesity, unspecified (principal)
CPT/HCPCS: 99204

== ENCOUNTER → 2024-06-06 13:52 | Outpatient (BNVA) | payer OTHER, SELFPAY | PROVIDERS: PCP Internal Medicine; Visit Provider Physician Assistant Surgical ==

== ENCOUNTER 2024-07-05 09:51 | Outpatient (REF) | payer OTHER, SELFPAY ==
--- NOTE | ~2024-07-05 | XR_ITS ---
EXAMINATION: XR CHEST 2 VIEWS HISTORY: E66.9 - Obesity, unspecified COMPARISON: There are no prior studies for comparison. FINDINGS: PA and lateral views of the chest are submitted. There are low lung volumes. The lungs are clear. There is no pleural effusion, pneumothorax, or pulmonary vascular congestion. The heart is normal in size. The bones are intact. XR/XR chest 2V IMPRESSION: Low lung volumes. The lungs are clear. Electronically signed by: Romie Dupree MD 07/10/2024 11:09 AM ALBERTO
--- NOTE | ~2024-07-05 | US_ITS ---
EXAMINATION: US ABDOMEN COMPLETE WITH LIVER ELASTOGRAPHY HISTORY: E66.9 - Obesity, unspecified TECHNIQUE: Real-time grayscale ultrasound imaging of the abdomen was performed and images were reviewed. COMPARISON: There are no prior studies for comparison. FINDINGS: Liver: The liver is normal in size, but demonstrates increased echotexture, consistent with steatosis. There is focal fatty sparing in the right lobe. No focal mass or intrahepatic biliary ductal dilatation is identified. There is normal hepatopedal flow in the portal vein. Ultrasound elastography of the liver was performed with 10 separate measurements of the liver parenchyma with the patient in the supine position. Measurements were obtained approximately 2 cm below Arline's capsule and perpendicular to the capsule. Images are of satisfactory quality. The median shear wave velocity is 1.21 m/s. The interquartile range/median (IQR/median) is 0.26. Gallbladder and biliary tree: The gallbladder is unremarkable, without evidence of calculi, wall thickening, or pericholecystic fluid. There is no sonographic Gutierrez sign. The common bile duct is normal in caliber measuring 5 mm. Kidneys: The right kidney measures 13.0 cm in length. The left kidney measures 12.7 cm in length. There is a 4 mm nonobstructing calculus at the upper pole of the left kidney and a 5 mm cortical calcification in the interpolar region. The kidneys are otherwise unremarkable, without evidence of masses or hydronephrosis. Pancreas: The pancreas is obscured by bowel gas. Spleen: The spleen is normal in size and contour, measuring 11.4 cm in length. Abdominal aorta and inferior vena cava: The visualized portions of the abdominal aorta and inferior vena cava are normal in caliber. There is no free fluid in the abdomen. US/US abdomen comp w elastography IMPRESSION: Hepatic steatosis. The median shear wave velocity is 1.21 m/s, corresponding to a median liver stiffness of 4.44 kPa. The IQR/median value is 0.26. This is potentially unreliable as the value is > 0.15 (15%). Findings are indicative of a normal elastography value with a low likelihood of severe fibrosis or cirrhosis. REFERENCE: Society of Radiologists in Ultrasound Liver Stiffness Thresholds (2020): LIVER STIFFNESS THRESHOLDS: *Shear wave velocity less than 1.3 m/s (Liver Stiffness equal or less than 5 kPa): High probability of being normal. *Shear wave velocity less than 1.7 m/s (Liver Stiffness less than 9 kPa): In the absence of other known clinical signs, rules out compensated advanced chronic liver disease. *Shear wave velocity between 1.7-2.1 m/s (Liver Stiffness 9-13 kPa): Suggestive of compensated advanced chronic liver disease but need further test for confirmation. *Shear wave velocity between 2.1-2.4 m/s (Liver Stiffness 13-17 kPa): Rules in compensated advanced chronic liver disease. *Shear wave velocity greater than 2.4 m/s (Liver Stiffness over 17 kPa): Suggestive of clinically significant portal hypertension. QUALITY OF DATA SET: *IQR/Median value equal or less than 0.15 implies a quality data set. *IQR/Median value over 0.15 implies a poor quality data set. SIGNIFICANT CHANGE FROM PRIOR EXAM: Significant change if liver stiffness measurement is 10% or greater from prior exam. OTHER CONSIDERATIONS: The stage of liver fibrosis may be overestimated in the setting of acute hepatitis, liver inflammation, elevated liver function tests, hepatic vascular congestion, obstructive cholestasis, non-fasting state, and infiltrative diseases such as amyloidosis and lymphoma. In some patients with NAFLD, the liver stiffness thresholds for compensated advanced chronic liver disease may be lower. In causes other than viral hepatitis and NAFLD, liver stiffness thresholds are not well established. Electronically signed by: Romie Dupree MD 07/09/2024 08:57 AM EST
== END 2024-07-05 09:52 | disposition home or self-care (01) ==
LOC: HO.US 09:51
PROVIDERS: PCP Internal Medicine; Visit Provider Surgery
DX: E66.9 Obesity, unspecified (principal); Z68.37 Body mass index [BMI] 37.0-37.9, adult; E78.5 Hyperlipidemia, unspecified
CPT/HCPCS: 71046; 76700; 76981

== ENCOUNTER → 2024-07-05 09:53 | Outpatient (BNV) | payer OTHER, SELFPAY | PROVIDERS: PCP Internal Medicine; Visit Provider Radiology Diagnostic Radiology | DX: E66.9 Obesity, unspecified (principal) | CPT/HCPCS: 71046; 76700 ==

== ENCOUNTER → 2024-07-05 12:51 | Day surgery (SDC) | payer OTHER, SELFPAY ==
[2024-07-03 09:58] VITALS: BMI 38.2
--- NOTE | 2024-07-03 12:51 | HO.ANESPROP2 ---
Documented by User: Jennifer Parker NP 07/03/24 12:51 HPI - Anesthesia Eval Consult details Narrative: 48yo M for Upper Endoscopy PMF Active Problems Active Problems: All Active Problems Submandibular lymphadenopathy (Acute) Physical exam (Acute) Pterygium (Acute) Cataract (Acute) Elevated fasting glucose (Acute) Low vitamin D level (Acute) Hemorrhoids (Acute) Left wrist pain (Acute) Preoperative clearance (Acute) Obesity (BMI 30-39.9) (Acute) Hyperlipidemia (Acute) BMI 37.0-37.9, adult (Acute) Hearing loss (Acute) Past Medical History Medical History Sinusitis Hyperlipidemia BMI 37.0-37.9, adult Morbid obesity Hearing loss Family History Family History Mother HIV (human immunodeficiency virus infection) Father HIV (human immunodeficiency virus infection) Son No problems noted. Son No problems noted. Son No problems noted. Daughter No problems noted. Daughter No problems noted. Daughter No problems noted. Surgical History Surgical History No history of previous surgery Social History Social History Housing: Apartment Alcohol intake: never Patient Tobacco Use Status: Never used Tobacco e-Cigarette/Vaping Use: Never Used Use of substances other than those prescribed or required for medical reasons: No Are you DNR?: No Advance Directives: No Advance Directives Information Provided: Yes service: No Cognitive needs: No Hearing needs: Yes Vision needs: Yes Meds Allergies Allergy/AdvReac Type Severity Reaction Status Date / Time No Known Allergies Allergy Verified 07/05/24 13:27 [No Known Allergies*] Home Medications ?Medication ?Instructions ?Recorded ?Confirmed ?Last Taken ?Type ascorbate calcium (vitamin C) 500 500 mg PO DAILY 05/01/24 07/05/24 Unknown History mg tablet multivit,Ca,min-iron 8 mg-folic 1 tab PO DAILY 05/01/24 07/05/24 Unknown History acid 200 mcg-lycopene 600 mcg tablet (Centrum Ultra Men's) Exam Height,Weight and Vital Signs: Height 5 ft 7 in Weight 110.677 kg Assessment and Plan Assessment Anesthesia Assessment: Chart Reviewed Documented by User: Annette Stuart MD 07/05/24 13:51 PMFSH Past Medical History Medical History Sinusitis Hyperlipidemia BMI 37.0-37.9, adult Morbid obesity Hearing loss Family History Family History Mother HIV (human immunodeficiency virus infection) Father HIV (human immunodeficiency virus infection) Son No problems noted. Son No problems noted. Son No problems noted. Daughter No problems noted. Daughter No problems noted. Daughter No problems noted. Surgical History Surgical History No history of previous surgery History of Problems with Anesthesia: No Social History Social History Housing: Apartment Alcohol intake: never Patient Tobacco Use Status: Never used Tobacco e-Cigarette/Vaping Use: Never Used Use of substances other than those prescribed or required for medical reasons: No Are you DNR?: No Advance Directives: No Advance Directives Information Provided: Yes service: No Cognitive needs: No Hearing needs: Yes Vision needs: Yes Meds Allergies Allergy/AdvReac Type Severity Reaction Status Date / Time No Known Allergies Allergy Verified 07/05/24 13:27 [No Known Allergies*] Home Medications ?Medication ?Instructions ?Recorded ?Confirmed ?Last Taken ?Type ascorbate calcium (vitamin C) 500 500 mg PO DAILY 05/01/24 07/05/24 Unknown History mg tablet multivit,Ca,min-iron 8 mg-folic 1 tab PO DAILY 05/01/24 07/05/24 Unknown History acid 200 mcg-lycopene 600 mcg tablet (Centrum Ultra Men's) Exam Airway Mallampati Class: III TM Dist: >3cm Neck ROM: Full Loose/Missing/Broken Teeth: No Heart: RRR Lungs: CTA Assessment and Plan Assessment Anesthesia Assessment: Anesthesia Plan Discussed Final Anesthetic Review History of Problems with Anesthesia: No NPO: Yes ASA Class: II Patient Risk: Low Procedure Risk: Intermediate Anesthetic Plan Anesthetic Plan: MAC: Disposition: Standard PACU
[2024-07-05 13:06] VITALS: BMI 36.8
[2024-07-05 13:13] VITALS: BP 140/88; PULSE 77; RESP 15; TEMP 36.8; O2SAT 95
[2024-07-05] MEDS: Lactated Ringers 1,000 ML 80 ML IVCONT (13:24)
--- NOTE | 2024-07-05 14:42 | MHC.SHP ---
Pre-Procedural Eval Section A - 24 Hr Update-Section A only Date of Service: 07/05/24 The patient is an INPATIENT: No The patient has been examined within 24 hours of the surgical procedure. The History & Physical has been completed within 30 days and I have reviewed it.: Yes Section B - Complete if H&P > 30 days Chief Complaint: Morbid (severe) obesity due to excess calories Details of Present Illness: Obesity Relevant Family History (Specify if Yes): Yes Relevant Social History: None Present Medications: None Medical History: No relevant PMH History of Previous Operations: No relevant previous surgery Allergies: Allergies Allergy/AdvReac Type Severity Reaction Status Date / Time No Known Allergies Allergy Verified 07/05/24 13:27 [No Known Allergies*] Review of Systems Sugical H&P ROS: Negative: Constitution, Cardiovascular, Respiratory, Neurological, Psychiatric, Hem-Onc, Allergic/Immunologic, Gastrointestinal, Genitourinary, Musculoskeletal, Integumentary, Endocrine and Eyes/Ears/Nose/Throat Exam Surgical H&P Exam: Normal: HEENT, Normal: Heart, Normal: Lungs, Normal: Extremities, Normal: Abdomen, Normal: Skin and Normal: Neurological Plan Diagnosis/Plan: Unchanged (EGD to assess the stomach's anatomy. Risks of bleeding and perforation were discussed with the patient and he is in agreement with the plan.) I have reviewed the history and physical and performed a pertinent physical examination on my patient. No changes have occurred unless specified. Time Spent With Patient Time: Total time managing care of this patient today ____ minutes.
--- NOTE | 2024-07-05 14:42 | PM.OP ---
Brief Operative Note Date of Service: 07/05/24 Pre-op diagnosis: Obesity Post-op diagnosis: same (Gastritis and duodenitis) Procedure: PROCEDURE DATE: 02/25/2025 PREOPERATIVE DIAGNOSIS: GERD POSTOPERATIVE DIAGNOSIS: ?Same as above. 1) duodenitis, 2) gastritis PROCEDURE: [id number] with biopsies Surgeon: ?Krishna Rico M.D.. Ph.D. Drafter Electromechanical: None ? Anesthesia: IV sedation Estimated blood loss: ?Minimal FINDINGS AND PROCEDURE: ? OPERATIVE INDICATIONS: ?The patient is a 48 year old male known to me who is interested in bariatric surgery. Based on this information I recommended an upper endoscopy to evaluate the stomach's anatomy. Risks and complications of the surgery were discussed with the patient in advance particularly the possibility of perforation or bleeding that may require surgical intervention. The patient understood the risks and was in agreement with the plan. ? PROCEDURE: After informed consent was obtained by the patient, the patient was ?transferred to the Operating Room and was placed in the supine position.? After successful induction of IV sedation, a mouth block was inserted and the patient was placed in the left lateral decubitus position. An upper endoscopy was performed next, the oropharynx and esophagus appeared within the normal limits. There was no hiatal hernia. The z-line was smooth. Two biopsies were obtained from the distal esophagus 2-3 cm proximal to the GE junction and two additional biopsies from the GE junction. The stomach was entered and it appeared to be of normal size. There was mild gastritis at antrum. There was no stricture or ulcer. A biopsy was obtained from the gastric fundus and antrum. No significant bleeding was noted from any of the biopsy sites. The scope was then advanced into the duodenum which appeared to be inflammed as well. A biopsy was obtained from the duodenum.. At that point the duodenum ?and the stomach were decompressed and the scope was withdrawn from the patient's mouth. The patient extubated and was transferred in stable condition to the Recovery Room for further care. I was present and performed all steps of the procedure. There were no residents to assist with this case. Krishna Rico M.D., Ph.D. Surgeon: Mahendra Rico MD Anesthesia: MAC Was an Drafter Electromechanical used for this Procedure?: No Estimated blood loss (mL): 0 IV fluids (mL): 400 Urine output (mL): 0 (No Carty to record output) Pathology: other (1) antrum x1, 2) fundus x1, 3) GE junction x2, 4) distal esophagus x2, 5) Duodenum x1) Condition: stable Disposition: PACU
[2024-07-05 15:28] VITALS: BP 113/83; PULSE 115; RESP 12; TEMP 36.2; O2SAT 93
[2024-07-05 15:40] VITALS: BP 113/83; PULSE 84; RESP 12; O2SAT 4
[2024-07-05 15:54] VITALS: BP 138/63; PULSE 89; RESP 12; TEMP 36.7
== END | disposition home or self-care (01) ==
PROVIDERS: PCP Internal Medicine; Visit Provider Surgery
PROC: 0DJ08ZZ Inspection of Upper Intestinal Tract, Via Natural or Artificial Opening Endoscopic (ICD-10-PCS; CPT 43235; principal; 2024-07-05 14:00)
DX: K21.9 Gastro-esophageal reflux disease without esophagitis (principal); E66.01 Morbid (severe) obesity due to excess calories; Z68.38 Body mass index [BMI] 38.0-38.9, adult; K29.50 Unspecified chronic gastritis without bleeding; B96.81 Helicobacter pylori [H. pylori] as the cause of diseases classified elsewhere; K29.80 Duodenitis without bleeding; E78.5 Hyperlipidemia, unspecified; H91.90 Unspecified hearing loss, unspecified ear; Z79.899 Other long term (current) drug therapy
CPT/HCPCS: 43239; 88305; 88313; 88342; J1596; J2003; J2250; J2704

== ENCOUNTER → 2024-07-05 12:51 | Outpatient (BNV) | payer OTHER, SELFPAY | PROVIDERS: PCP Internal Medicine; Visit Provider Surgery | DX: K29.70 Gastritis, unspecified, without bleeding (principal); K29.80 Duodenitis without bleeding | CPT/HCPCS: 43239 ==

== ENCOUNTER 2024-07-06 09:53 | Outpatient (AMB) | payer OTHER, SELFPAY ==
--- NOTE | 2024-07-06 10:00 | MHC.WMTHER ---
Intake Intake Visit Reasons: OV BH Intake Allergies No Known Allergies [No Known Allergies*] Allergy (Verified 07/05/24 13:27) PFSH Medical History Sinusitis Hyperlipidemia BMI 37.0-37.9, adult Morbid obesity Hearing loss Surgical History No history of previous surgery Family History Mother HIV (human immunodeficiency virus infection) Father HIV (human immunodeficiency virus infection) Son No problems noted. Son No problems noted. Son No problems noted. Daughter No problems noted. Daughter No problems noted. Daughter No problems noted. Social History Housing: Apartment Alcohol intake: never Patient Tobacco Use Status: Never used Tobacco e-Cigarette/Vaping Use: Never Used service: No Cognitive needs: No Hearing needs: Yes Vision needs: Yes Behavioral Health Assessment Weight Management Therapy Therapy Notes Details The patient is a 48-year-old male who presents for an initial visit for behavioral health assessment as part of a surgical weight loss program, accompanied by his for support due to hearing impairments. This is his second time in the program; he initially began the surgical weight loss program in the summer of 2021 at a weight of 261 lbs and is now re-establishing care as of April 2024, with a current weight of 244 lbs. The patient denies any history of mental health treatment, either inpatient or outpatient. However, a full assessment was not completed today. The patient is scheduled to return in two weeks to continue the assessment. He was provided a copy of the meal plan given by the provider during his first visit and received psychoeducation on the importance of following the prescribed meal and exercise plan. It was emphasized that adherence to the plan is crucial for success. The patient may require support with habit building and consistency. He appears to be somewhat resistant to fully implementing the prescribed plan. Presenting Concerns Referral Source WMP-Provider. Reason for referral Completion of behavioral health assessment as part of process for weight-loss surgery. Precipitating Event Obsity. Living Situation Current Living Situation Rent Comments PT lives with , 3 children and the family dog. Food/Weight/Diet Expectations of change Initial goal is to lose 10% of his weight before surgery, which is about 24lbs. Ultimate weight goal: 218lbs before surgery. Initial weight 05/14/2024: 244Lbs Lior yesterday 07/05/2024: 235Lbs Patient goals are PT is implementing the following: Current meal plan: no. Will start today. Exercise plan: None. Injured his toe. Scale: No. Damaged will but a new one. History/Relationship with food Example of meals before starting the program: Breakfast: Lunch: Dinner: Snacks: Drinks/Liquids: History/Relationship with weight In the last 10 years, the patient's Lowest weight was and highest Social History Family history and relationship PT is 6 years ago but they have been together for about 20 years. They have 3 children, they are 17, 15 and 10. PT also has 3 older adult children. He has 2 siblings, both parents . PT reports good family relationships. Parental/Familial chiller hand obligations 3 children at home. Developmental history and status When he was in school in [place] he received special ed (chapter 1 services) in elementary school PT is current hear impaired, will have surgery at the end of the month. HE currently only has 4% of audition. Social support , adult children, anglican family. Community support PCP, specialist, some friends, anglican. Holiness/Spirituality Denominational. 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 Cultural/Ethnic information Born and raised in [place]. Moved to [place] in 2006. PT is Swedish-speaker. Legal Involvement and History Current or historical involvement with the legal system? None Education Highest grade completed 10th grade. Preferred learning style Learn by doing and Visual Currently enrolled in educational program? No Interested in further educational program? No Employment Employment Status Unemployed Wants help to find employment? No Financial Situation Financial assistance? Food [place] and [employer] Mental Health and Addiction Treatment Psychiatric history PT denies ever been in crisis or inpatient for mental health. There is no history and/or current concern about SI/Sa and self-harm or other harm. Questionnaires PHQ-9 Over the last 2 weeks, how often have you been bothered by any of the following problems? 1. Little interest or pleasure in doing things: not at all 2. Feeling down, depressed, or hopeless: not at all 3. Trouble falling or staying asleep, or sleeping too much: several days 4. Feeling tired or having little energy: several days 5. Poor appetite or overeating: nearly every day (overeating) 6. Feeling bad about yourself - or that you are a failure or have let yourself or your family down: several days 7. Trouble concentrating on things, such as reading the newspaper or watching television: several days 8. Moving or speaking so slowly that other people could have noticed. Or the opposite - being so fidgety or restless that you have been moving around a lot more than usual: not at all 9. Thoughts that you would be better off or of hurting yourself in some way: not at all Total score: 7 Depression Screening Interpretation: Positive Depression Screening Done: Yes Source: Developed by Drs. Romie Zabala, Addis Dc, Enoch Adams and colleagues, with an educational carri from [employer]. Binge Eating Scale Group 1 A. I don't feel self-conscious about my wt. or body size when I'm with others. B. I feel concerned about how I look to others, but it normally does not make me fell disappointed with myself C. I do get self-conscious about my appearance and wt. which makes me feel disappointed in myself. D. I feel very self-conscious about my wt. and frequently I feel intense shame and disgust for myself. I try to avoid social contacts because of my self-consciousness. Response Group 1: C Group 2 A. I don't have any difficulty eating slowly in the proper manner. B. Although I seem to gobble down foods, I don't end up feeling stuffed because of eating to much. C. At times, I tend to eat quickly and then, I feel uncomfortably full afterwards. D. I have the habit of bolting down my food, without really chewing it. When this happens I usually feel uncomfortably stuffed because I've eaten to much. Response Group 2: B Group 3 A. I feel capable to control my eating urges when I want to. B. I feel like I have failed to control my eating more than the average person. C. I feel utterly helpless when it comes to feeling in control of my eating urges. D. Because I feel so helpless about controlling my eating I have become very desperate about trying to get control. Response Group 3: C Group 4 A. I don't have the habit of eating when I'm bored. B. I sometimes eat when I'm bored, but often I'm able to get busy and get my mind off food. C. I have a regular habit of eating when I'm bored, but occasionally, I can use some other activity to get my mind off eating. D. I have a strong habit of eating when I'm bored. Nothing seems to help me breath the habit. Response Group 4: D Group 5 A. I'm usually physically hungry when I eat something. B. Occasionally, I eat something on impulse even though I really am not hungry. C. I have the regular habit of eating foods, that I might not really enjoy, to satisfy a hungry feeling even though physically, I don't need the food. D. Although I'm not physically hungry, I get a hungry feeling in my mouth that only seems to be satisfied when I eat a food, like sandwich, that fills my mouth. Sometimes, when I eat the food to satisfy my mouth hunger, I then spit the food out so I won't gain weight. Response Group 5: C Group 6 A. I don't feel any guilt or self-hate after I overeat. B. After I overeat, occasionally I feel guilt or self-hate. C. Almost all the time I experience strong guilt or self-hate after I overeat. Response Group 6: C Group 7 A. I don't lose total control of my eating when dieting even after periods when I overeat. B. Sometimes when I eat a forbidden food on a diet, I feel like I blew it and eat even more. C. Frequently, I have the habit of saying to myself, I've blown it now, why not go all the way, when I overeat on a diet. When that happens I eat more. D. I have a regular habit of starting a strict diets for myself but I break the diets by going on an eating binge. My life seems to be either a feast or famine. Response Group 7: C Group 8 A. I rarely eat so much food that I feel uncomfortably stuffed afterwards. B. Usually about once a month, I each such a quantity of food, I end up feeling very stuffed. C. I have regular periods during the month when I eat large amounts of food, either at mealtime or at snacks. D. I eat so much food that I regularly feel quite uncomfortable after eating and sometimes a bit nauseous. Response Group 8: C Group 9 A. My level of calorie intake does not go up very high or go down very low on a regular basis. B. Sometimes after I overeat, I will try to reduce my caloric intake to almost nothing to compensate for the excess calories I've eaten. C. I have a regular habit of overeating during the night. It seems that my routine is not to be hungry in the morning but overeat in the evening. D. In my adult years, I have had week-long periods where I practically starve myself. This follows periods when I overeat. It seems I live a life of either feast or famine. Response Group 9: C Group 10 A. I usually am able to stop eating when I want to. I know when enough is enough. B. Every so often, I experience a compulsion to eat which I can't seem to control. C. Frequently, I experience strong urges to eat which I seem unable to control, but at other times I can control my eating urges. D. I feel incapable of controlling urges to eat. I have a fear of not being able to stop eating voluntarily. Response Group 10: D Group 11 A. I don't have any problem stopping eating when I feel full. B. I usually can stop eating when I feel full but occasionally overeat leaving me feeling uncomfortably stuffed. C. I have a problem stopping eating once I start and usually I feel uncomfortably stuffed after I eat a meal. D. Because I have a problem not being able to stop eating when I want, I sometimes have to induce vomiting to relieve my stuffed feeling. Response Group 11: B Group 12 A. I seem to eat just as much when I'm with others, Family social gatherings as when I'm by myself. B. Sometimes, when I'm with other persons, I don't eat as much as I want to eat because I'm self-conscious about my eating. C. Frequently, I eat only a small amount of food when others are present, because I'm very embarrassed about my eating. D. I feel so ashamed about overeating that I pick times to overeat when I know no one will see me. I feel like a closet eater. Response Group 12: A Group 13 A. I eat three meals a day with only an occasional between meal snack. B. I eat 3 meals a day, but I also normally snack between meals. C. When I am snacking heavily, I get in the habit of skipping regular meals. D. There are regular periods when I seem to be continually eating, with no planned meals. Response Group 13: B Group 14 A. I don't think much about trying to control unwanted eating urges. B. At least some of the time, I feel my thoughts are pre-occupied with trying to control my eating urges. C. I feel that frequently I spend much time thinking about how much I ate or about trying not to eat anymore. D. It seems to me that most of my waking hours are pre-occupied by thoughts about eating or not eating. I feel like I'm constantly struggling not to eat. Response Group 14: A Group 15 A. I don't think about food a great deal. B. I have strong craving for food but they last only for brief periods of time. C. I have days when I can't seem to think about anything else but food. D. Most of my days seem to be pre-occupied with thoughts about food. I feel like I live to eat. Response Group 15: B Group 16 A. I usually know whether or not I'm physically hungry. I take the right portion of food to satisfy me. B. Occasionally, I feel uncertain about knowing whether or not I'm physically hungry. A these times it's hard to know how much food I should take to satisfy me. C. Even though I might know how many calories I should eat, I don't have any idea what is a normal amount of food for me. Response Group 16: A Binge Eating Score: 24 Score less than 17 Minimal Risk Score between 18-26 Moderate Risk Score between 27-46 High Risk Assessment & Plan Assessment & Plan (1) Inappropriate diet and eating habits: Code(s): Z72.4 - Inappropriate diet and eating habits (2) Obesity (BMI 30-39.9): Code(s): E66.9 - Obesity, unspecified (3) Adjustment disorder, unspecified: Code(s): F43.20 - Adjustment disorder, unspecified Plan The patient is scheduled to return in two weeks to continue the assessment. The patient may require support with habit building and consistency. He appears to be somewhat resistant to fully implementing the prescribed plan. A new PHQ-9 will be administered at next visit. Next moo: 07/18/2024 at 11am, Telehealth. Coding Level of Care Code New Pt Psy Diag Eval (51939) Patient Type New Diagnoses Inappropriate diet and eating habits Z72.4 Obesity (BMI 30-39.9) E66.9 Adjustment disorder, unspecified F43.20 Time Spent (min) 60
== END 2024-07-06 12:17 | disposition home or self-care (01) ==
PROVIDERS: PCP Internal Medicine; Visit Provider Counselor Mental Health
DX: Z72.4 Inappropriate diet and eating habits (principal); E66.9 Obesity, unspecified; F43.20 Adjustment disorder, unspecified
CPT/HCPCS: 90791

== ENCOUNTER 2024-10-01 09:41 | Outpatient (AMB) | payer OTHER, SELFPAY ==
--- NOTE | 2024-10-01 09:52 | A.OFFPC_ITS ---
Vital Signs 10/01/24 09:55 Height 5 ft 7 in Weight 250 lb BMI 39.2 BP 138/86 Blood Pressure Location Lt brachial Intake Visit Reasons: hemorrhoids issue Director Of First Impressions Required: Yes Director Of First Impressions Language: Rn Maternity Name: Leni Rodriguez MD Information Interpreted: non-clinical & clinical Sock Folder: Present Accompanied by: Self / Same As Patient Allergies No Known Allergies [No Known Allergies*] Allergy (Verified 10/01/24 10:06) Medication List - Last Reconciled 10/01/24 by Leni Rodriguez MD ascorbate calcium (vitamin C) 500 mg PO DAILY atorvastatin 10 mg PO DAILY 90 days mv,Ca,bwe-hsjs-OV-lycopene 8 mg iron- 200 mcg-600 mcg (Centrum Ultra Men's) 1 tab PO DAILY Tobacco use date assessed: 10/01/24 Dental Screening Dental Screen Date: 10/01/24 Did you have a dental visit in the last 12 months?: Yes Did you have a dental problem in the last 6 months where you did not have access to dental care?: No Was dental information given to patient?: Patient has dentist HPI HPI Comments History of Present Illness Details The patient is a 48-year-old male presenting with hemorrhoids. He has been dealing with hemorrhoids since a young age, currently manifesting as intermittent pain and minor bleeding when excessive cleaning post-defecation is performed. The symptoms have intensified recently, although no external prolapse has been observed, prompting this consultation. Swelling occurs each time he uses the bathroom. Additional concerns include hyperlipidemia for which he ceased taking the prescribed medication a month ago, without medical advice or clear reasons, though states feeling better. His history also reveals a finding of fatty liver discovered through a sonogram on July 05, likely connected to weight issues. [facility] Medical History (Updated 10/01/24 @ 12:09 by Leni Rodriguez MD) Sinusitis Hyperlipidemia BMI 37.0-37.9, adult Morbid obesity Hearing loss Surgical History No history of previous surgery Family History Mother HIV (human immunodeficiency virus infection) Father HIV (human immunodeficiency virus infection) Son No problems noted. Son No problems noted. Son No problems noted. Daughter No problems noted. Daughter No problems noted. Daughter No problems noted. Social History Housing: Apartment Alcohol intake: never Patient Tobacco Use Status: Never used Tobacco e-Cigarette/Vaping Use: Never Used Second Hand Smoke Exposure: No service: No Current occupational status: unemployed Cognitive needs: No Hearing needs: Yes Vision needs: Yes Questionnaire PHQ-9 Over the last 2 weeks, how often have you been bothered by any of the following problems? 1. Little interest or pleasure in doing things: not at all 2. Feeling down, depressed, or hopeless: not at all 3. Trouble falling or staying asleep, or sleeping too much: not at all 4. Feeling tired or having little energy: not at all 5. Poor appetite or overeating: not at all 6. Feeling bad about yourself - or that you are a failure or have let yourself or your family down: not at all 7. Trouble concentrating on things, such as reading the newspaper or watching television: not at all 8. Moving or speaking so slowly that other people could have noticed. Or the opposite - being so fidgety or restless that you have been moving around a lot more than usual: not at all 9. Thoughts that you would be better off or of hurting yourself in some way: not at all Total score: 0 Depression Screening Interpretation: Negative Depression Screening Done: Yes 92019 - PHQ-9 Billing: Yes Source: Developed by Drs. Romie Zabala, Addis Dc, Enoch Adams and colleagues, with an educational carri from [employer]. Thrive Questionnaire Date Thrive assessed: 10/01/24 I am a: Patient What is your living situation today?: I have a steady place to live Within the past 12 months, did the food you bought not last and you didn't have the money to get more?: Never true Within the past 12 months, did you worry whether your food would run out before you got money to buy more?: Never true Do you have trouble paying for medicines?: No Do you have trouble getting transportation to medical appointments?: No Do you have trouble paying your heating and electricity bill?: No Do you have trouble taking care of your child, family member or friend?: No Do you have trouble with day-to-day activities such as bathing, preparing meals, shopping, managing finances, etc.?: No Are you currently unemployed and looking for a job?: No Are you interested in more education?: No Please select the resources that you would like help with: None Currently or been in a relationship where the following occur: No concerns reported THRIVE Score: 0 AUDIT C Alcohol Use Questionnaire (AUDIT-C) 1. How often do you have a drink containing alcohol?: Never Total Score: 0 Score Reviewed/Action Taken: No MARTY-7 AMB Questionnaire MARTY-7 Date MARTY - 7 assessed: 10/01/24 Feeling nervous, anxious, or on edge: 0 = Not at all Not being able to stop or control worryin = Not at all Worrying too much about different things: 0 = Not at all Trouble relaxin = Not at all Being so restless that it is hard to sit still: 0 = Not at all Becoming easily annoyed or irritable: 0 = Not at all Feeling afraid as if something awful might happen: 0 = Not at all Total MARTY-7 score (0-4 normal; 5-9 mild; 10-14 moderate; 15-21 severe): 0 Source: Developed by Drs. Romie Zabala, Addis Dc, Enoch Adams and colleagues, with an educational carri from [employer]. MARTY-7 Assessment Billing AMRTY-7 Assessment Tool: MARTY-7 Assessment 47869 Review of Systems Const All systems reviewed & are unremarkable except as noted in HPI and below Card Denies chest pain at rest, Denies chest pain with activity, Denies edema, Denies irregular heart rhythm, Denies claudication, Denies dyspnea, Denies dyspnea on exertion, Denies orthopnea, Denies paroxysmal nocturnal dyspnea and Denies slow heart rate Resp Denies cough, Denies dyspnea and Denies dyspnea on exertion GI Denies abdominal pain, Denies change in bowel habits, Denies excessive flatus, Denies nausea and Denies vomiting Neuro Denies lack of coordination Physical exam (Primary Care) Vital Signs: Last Vital Signs BP 138/86 10/01/24 09:55 BMI result Body Mass Index 39.2 BMI Assessment/Plan discussion: High BMI High, discussed plan: lifestyle, weight reduction, dietary and physical activity Tobacco/Smoking Status: Tobacco use Status Tobacco use date assessed 10/01/24 10/01/24 10:03 Patient Tobacco Use Status Never used Tobacco 10/01/24 10:03 e-Cigarette/Vaping Use Never Used 10/01/24 10:03 PHQ-9: PHQ-9 Score PHQ-9: Total score 0 10/01/24 10:07 Depression Screening Interpretation: Negative Thrive Assessment: Date of Thrive Assessment Date Thrive assessed 10/01/24 10/01/24 10:03 Currently or been in a relationship where the following occur: No concerns reported Resp Effort & Inspection: normal respiratory effort Auscultation: clear to auscultation bilaterally Cardio Jugular venous distension: no JVD Rate: regular rate Rhythm: regular rhythm Heart sounds: S1 normal heart sound present and S2 normal heart sound present GI Rectal Exam - Male: Yes External hemorrhoid(s) present Extrem General: Yes full ROM Coding Level of Care Code Est Pt Level 4 (35991) Complex EM visit Add On G2211 Diagnoses Grade I hemorrhoids K64.0 Hemorrhoid type: first degree Obesity (BMI 30-39.9) E66.9 Pure hypercholesterolemia E78.00 Hyperlipidemia type: pure hypercholesterolemia GUZMAN (nonalcoholic steatohepatitis) K75.81 Additional Codes MARTY-7 Assessment Billing - MARTY-7 Assessment Tool: MARTY-7 Assessment 76575 ([id number]) PHQ-9 - 45890 - PHQ-9 Billing: Yes ([id number]) Time Spent (min) 22 Assessment & Plan Assessment & Plan (1) Hemorrhoids: Code(s): K64.9 - Unspecified hemorrhoids Category: Medical Qualifiers: Hemorrhoid type: first degree Qualified Code(s): K64.0 - First degree hemorrhoids (2) Obesity (BMI 30-39.9): Code(s): E66.9 - Obesity, unspecified Category: Medical (3) Hyperlipidemia: Code(s): E78.5 - Hyperlipidemia, unspecified Category: Medical Qualifiers: Hyperlipidemia type: pure hypercholesterolemia Qualified Code(s): E78.00 - Pure hypercholesterolemia, unspecified (4) GUZMAN (nonalcoholic steatohepatitis): Code(s): K75.81 - Nonalcoholic steatohepatitis (GUZMAN) Category: Medical Plan Hemorrhoids will be treated with a stronger topical cream to manage swelling and discomfort, as discussed. Surgical intervention is currently deemed unnecessary. The patient is advised to resume hyperlipidemia medication, with laboratory evaluations in November to monitor his cholesterol levels effectively. His known fatty liver necessitates lifestyle adjustments and monitoring due to its likely association with weight, but no immediate action is required. Patient was informed and verbally consented to the use of an ambient scribe for clinic note documentation during this visit. Orders: Orders Lipid Panel 2 Months E78.5 - Hyperlipidemia, unspecified Comprehensive [place]. Panel Fast 2 Months E66.9 - Obesity, unspecified Vitamin D 25-OH Total 2 Months E55.9 - Vitamin D deficiency, unspecified Referrals General Surgery Referral K64.9 - Unspecified hemorrhoids Medications: New hydrocortisone 2.5% (Proctosol HC) 1 appl TN BID-QID PRN 30 grams 1RF hemorrhoids 7 days Refilled atorvastatin 10 mg PO DAILY 90 tabs 1RF 90 days E66.9 - Obesity, unspecified Patient Instructions: - Use the prescribed cream for hemorrhoids as directed. - Resume taking the cholesterol medication as previously prescribed. - Adhere to the scheduled lab tests in November for cholesterol monitoring. - Monitor for any increase in hemorrhoid symptoms or other health changes. - Consider lifestyle modifications to address fatty liver concerns. - Seek medical advice if symptoms worsen or new concerns arise.
[2024-10-01 09:55] VITALS: BP 138/86; BMI 39.2
--- OUTSIDE RECORDS SUMMARY | 2024-10-01 11:04 | XMS_ITS | Clinical Summary ---
Author Organization [facility] ity Address [address] [place] [address] Care Team Providers Care Chiropractic Assistant Name Role Phone Unavailable Primary Care Provider Unavailabl e Social History Tobacco Use Types Packs/Day Years Used Date Smoking Tobacco: Never Assessed Sex and Gender Information Value Date Recorded Sex Assigned at Not on file Legal Sex Male 5:44 AM EST Gender Identity Not on file Sexual Orientation Not on file Plan of Treatment Health Maintenance Due Date Last Done Comments DTaP,Tdap,and Td Vaccines (1 - Tdap) 10/04/1995 Hepatitis B Vaccines (1 of 3 - 19+ 3-dose series) 10/04/1995 COVID-19 Vaccine (2023-2 5 season) 2024 Influenza Vaccine (Season Ended) 2025 HIB Vaccines Aged Out No longer eligi ble based on patient's age to complete this topic HPV Vaccines Aged Out No longer eligi ble based on patient's age to complete this topic Hepatitis A Vaccines Aged Out No long er eligible based on patient's age to complete this topic IPV Vaccines Aged Out No longer eligi ble based on patient's age to complete this topic MMR Vaccines Aged Out No longer eligi ble based on patient's age to complete this topic Meningococcal ACWY Vaccine Aged Out N o longer eligible based on patient's age to complete this topic Meningococcal B Vacine Aged Out No lo nger eligible based on patient's age to complete this topic Pneumococcal Vaccine: Pediat rics (0 to 5 Years) and At-Risk Patients (6 to 64 Years) Aged Out No longer eligible b ased on patient's age to complete this topic RSV Immunization Patients Un brigitte 20 months Aged Out No longer eligible b ased on patient's age to complete this topic Varicella Vaccines Aged Out No longer eligible based on patient's age to complete this topic
--- OUTSIDE RECORDS SUMMARY | 2024-10-01 11:04 | XMS_ITS | Data Portability ---
Author Organization [place] - [facility], Allergy Address [address] [place] [address] Care Team Providers Care Lead Quality Control Technician Name Role Phone LENI ORLANDO Primary Care Provider [phone] Assessment Encounter Date Assessment Date Assessment LastModified by Organization Details LastModified Time 06/11/2024 06/11/2024 Patient with bilateral progressive sensorineural hearing loss, currently with severe to profound sensorineural hearing loss, doing poorly with conventional amplification. The patient has been found to meet the anatomic and audiologic candidacy criteria for cochlear implantation in both ears. Today we discussed the risks, benefits, and complications associated with cochlear implantation, including the risks of bleeding, infection, CSF leak, temporary or permanent facial nerve paralysis or paresis, delayed facial paresis, long-term risk of meningitis, and risk for device failure or need for device removal or replacement. We discussed the importance of keeping up-to-date Prevnar 20 vaccine to reduce the long-term risk of meningitis. After full discussion, the patient would like to go ahead and proceed with implantation. We will be implanting the left ear with the [employer] CI 632implant. After full discussion, the patient would like to proceed with surgery. I have provided patient with the contact information for my certified surgical first assistant. We will begin the scheduling process and see the patient back at the time of surgery. Patient will not require medical clearance from their primary care provider preoperatively. [email or web address] Not available 06/11/2024 10:45:27 07/27/2024 07/27/2024 48 year old male presents following left cochlear implant surgery on 07/20/[address] Martinez. Patient is doing well post-operatively . Exam demonstrated well-healing postauricular incision and processor minimal overlying fluid collection. Facial nerve is intact. TMs are intact. Affected TM with expected hemotympanum. Recommend avoiding lifting more than 25 pounds or heavy exertion for 2 weeks. Recommend refraining from alcohol as it is dangerous when taking pain medications and tends to impede the healing process. Recommend continuing Tylenol and Motrin for minor discomfort. Patient is aware to contact office with severe dizziness, drainage of clear or infected fluid from the incision site, increased redness around the ear, otorrhea, neck pain, facial weakness, or obvious fluid collection over the device. Patient is aware they can gently wash incision site. Patient is scheduled with audiology later this week for mapping, and with Dr. Martinez in 3 months. [email or web address] Not available 07/27/2024 13:45:32 Plan of Treatment Reminders Order Date Submit Date Provider Last Modified By Organization Details Last Modified Time Details Appointments Post Op 2024 03:00P M NISHI MARTINEZ MD Not available Not available Not available Lab None recorded. Referral None recorded. Procedures None recorded. Surgeries cochlear device implantat ion (SURG) 2023 024 [email or web address] Not available 06/11/2024 10:53:52 Imaging None recorded. Medication Orders None recorded. Patient TargetsNo targets recorded. Patient InstructionsNo instructions recorded. Reason for Referral None Reported. Results Created Date Observation Date Name Description Value Unit Range Abnormal Flag Note LastModifiedBy Organization Detail LastModifiedTime 06/12/2010/28/2023 audio gram No observ ation record ed. [email or web address] Not Available 05/27 09:29:17 06/12/2006/11/2024 CT, tempo ral bone, w/o contr ast No observ ation record ed. [facility] [address], [place], [address], 06/13/2024 16:33:29 06/13/20 24 06/11/2024 CT, tempo ral bone, w/o contr ast No observ ation record ed. [email or web address] [facility] [address], [place], [address], 06/13/2024 16:33:29 07/23/19 25 07/23/2024 fluor oscop y (PROC ) No observ ation record ed. [address] [place], [address], 07/23/2024 13:07:29 Result Notes None recorded. Problems Name Problem SNOMED Code Status Onset Date Resolution Date Notes Provider Name and Address Organization Details Recorded Time Sensorineural hearing loss of bilateral ears [id number] Active 2023 NISHI MARTINEZ MD [address], [address], [facility] - [facility] 20:25:39 Problem Notes None recorded. Procedures Surgical History Date Name Laterality Status Provider Name and Address Organization Details Recorded Time 07/20/19 25 COCHLEAR DEVICE IMPLANTATION (SURG) completed Satish Gannon [place] - [facility] 07/23/2024 16:49:28 06/11/[address] temporal bones - Xoran completed NISHI MARTINEZ MD 100 [facility],[address], [address], [facility] - [facility] 06/11/2024 10:16:12 Imaging Results Imaging Date Name Status LastModified by Organiz ation Details LastModified Time 10/28/2023 audiogram completed [email or web address] Information n ot available 06/12/2024 09:29:17 06/11/2024 CT, temporal bone, w/o contrast [place] [address] [facility] [address], [place], [address], 06/13/2024 16:33:29 06/11/2024 CT, temporal bone, w/o contrast [place] [address] [facility] [address], [place], [address], 06/13/2024 16:33:29 07/23/2024 fluoroscopy (PROC) completed [address] [place], [address], 07/23/2024 13:07:29 Procedure Notes None recorded. Medical Equipment Implant [employer] Issuing Agency Serial Number Lot Number Status Provider Name and Address Organization Details Recorded Time Cochlear implanr [facility] [id number] NISHI MARTINEZ MD 100 [facility] [address], [place], [address] , [place] - [facility] 14:43:07 Cochlear implant FDA [id number] Y NISHI MARTINEZ MD 100 [facility] [address], [place], [address] , [place] - [facility] 14:43:47 Allergies No known drug allergies Medications Name Sig Start Date Stop Date Status Note LastModified by Organization Details LastModified Time atorvastati n 10 mg tablet TAKE 1 TABLET ORALLY BEDTIME FOR 90 DAYS 06/11 completed Not Available Not Available Not Available ofloxacin 0.3 % eye drops INSTILL 1 DROP INTO RIGHT EYE FOUR TIMES A DAY CONTINUE DIRECTED 06/11 completed Not Available Not Available Not Available prednisolon e acetate 1 % eye drops,suspe nsion PLEASE SEE ATTACHED FOR DETAILED DIRECTION S 06/11 completed Not Available Not Available Not Available amoxicillin 875 mg-potassiu m clavulanate 125 mg tablet TAKE 1 TAB ORALLY 2 TIMES A DAY FOR 10 DAYS 06/11 completed Not Available Not Available Not Available oxycodone 5 mg tablet TAKE 1 TABLET BY MOUTH EVERY 4 TO 6 HOURS FOR 3 DAYS active Not Available Not Available No t Available Vitamin D3 25 mcg (1,000 unit) tablet TAKE 1 TABLET BY MOUTH EVERY DAY active Not Available Not Available No t Available Vitals Date Recorded Body height Body mass index (BMI) Body weight Provider Name and Address Organization Details Last Updated DateTime 06/11/2024 170.18 cm 39.2 kg/m2 400380.09 g Maria M eDlgado [place] - [facility] 06/11/2024 09:40:10 Date Recorded Body height Body weight Provider Name and Address Organization Details Last Updated DateTime 07/27/2024 170.18 cm 250907.09 g Leni Ingram [place] - [facility] 07/27/2024 11:30:23 Social History None recorded. Functional Status None recorded. Mental Status None recorded. Family History Nothing Reported. Medical History Condition Response Allergies/Hayfever N Heart Problems N Anxiety N Tonsil Infections N Emphysema N Migraines N Thyroid Problems N Glaucoma N Depression N COPD N Developmental Delay N Nasal or Sinus Problems N Anemia N Immune System Disorder N Anesthesia Complications N Heart Attack (AR) N Other Skin Condition N Diabetes N Rhinitis N Bleeding Disorder N Food Allergy N Arthritis N Hearing Loss Y Hyperlipidemia N Cancer N Stroke N Dementia N Nasal polyps N Asthma N Sleep Disorder N GERD/Reflux N High Cholesterol N Liver Disease N Headaches N Fibromyalgia N Hypertension N Speech Delay N Kidney Disease N Past Encounters Encounter ID Performer Location Encounter Start Date Encounter Closed Date Diagnosis/Indication Diagnosis SNOMED-CT Code Diagnosis ICD10 Code Diagnosis Note [id number] NISHI MARTINEZ MD [facility] [address] [address] 06/11/2024 09:08:50 06/11/2024 11:06:26 Sensorineural hearing loss of bilateral ears 492410289 H90.3 [id number] GAVIN GUZMAN MD [facility] [address] [address] 07/27/2024 11:09:30 07/27/2024 13:54:28 Postoperative visit [id number] Z48.89 Sensorineu ral hearing loss of bilateral ears 744832025 H90.3 Health Concerns Section Related Observation LastModified by Organization Detai ls LastModified Time None Recorded Concern Status LastModified by Organization Details LastModified Time None Recorded Advance Directives Directive None Recorded Payers Encounter Date Sequence Insurance Name Policy Number Policy Davidson Covered Member ID Davidson Member ID Guarantor Name 06/11/2024 1 [facility] [employer] (MEDICAID HMO) JOSUE Mcdaniels [id number] Otto Mcdaniels 07/27/2024 1 [facility] [employer] (MEDICAID HMO) JOSUE Mcdaniels [id number] Otto Mcdaniels Notes Date Note Type Note Provider Name and Address Organization Details Recorded Time 06/11/2024 text/html 48-year-old Luxembourger-speaking male with bilateral severe to profound sensorineural hearing loss.. Patient started losing his hearing at age 6 and the hearing loss has been progressive over the years. He did not start using hearing aids until he was about 26 years of age but has been using them consistently since the early . He underwent cochlear implant evaluation at the [facility] back in October 2023 and was found to meet the audiologic candidacy criteria for cochlear implantation in both ears. Patient has expressed interest in implantation of the left ear. He has met with the Cochlear recipient solutions developer Carley Hardy. Patient is accompanied by his today who is helping with Luxembourger translation. Patient did have a pneumococcal Prevnar 20 vaccine back in November. NISHI MARTINEZ MD [address] [place] [address],[address], [address], [facility] - [facility] 06/11/2024 10:47:30 07/27/2024 text/html 48-year-old male presents following cochlear implant on 07/20/[address] Martinez. Patient is doing well post-operatively. Denies pain, dizziness, taste disturbance, numbness, worse hearing loss, or otorrhea. GAVIN GUZMAN MD 100 [facility],[place] [address], [place], [address], [facility] 07/27/2024 13:45:39
== END 2024-10-01 10:18 | disposition home or self-care (01) ==
LOC: HO.HMCH 09:42
PROVIDERS: PCP Internal Medicine; Visit Provider Internal Medicine
DX: K64.0 First degree hemorrhoids (principal); E66.9 Obesity, unspecified; Z68.39 Body mass index [BMI] 39.0-39.9, adult; E78.00 Pure hypercholesterolemia, unspecified; K75.81 Nonalcoholic steatohepatitis (NASH)

== ENCOUNTER → 2024-10-01 09:41 | Outpatient (BNVA) | payer OTHER, SELFPAY | PROVIDERS: PCP Internal Medicine; Visit Provider Internal Medicine | DX: K64.0 First degree hemorrhoids (principal); E66.9 Obesity, unspecified; E78.00 Pure hypercholesterolemia, unspecified; K75.81 Nonalcoholic steatohepatitis (NASH); E55.9 Vitamin D deficiency, unspecified; E78.5 Hyperlipidemia, unspecified; Z68.39 Body mass index [BMI] 39.0-39.9, adult | CPT/HCPCS: 96127; 99212 ==

== ENCOUNTER 2024-10-09 09:25 | Outpatient (AMB) | payer OTHER, SELFPAY ==
--- NOTE | 2024-10-09 09:31 | MHC.OFFVIS ---
Vital Signs 10/09/24 09:39 Height 5 ft 7 in Weight 252 lb BMI 39.5 BP 138/94 H Blood Pressure Location Rt brachial Position Sitting Pulse 60 Intake Visit Reasons: Hemorrhoids Intake Note: Patient referred by pcp Dr. Ashu Rodriguez for hemorrhoids. No improvement w/ Proctosol cr. Patient c/o: notice blood when wiping after bm, constiptation. Salon Professional Required: Yes Accompanied by: Self / Same As Patient Allergies No Known Allergies [No Known Allergies*] Allergy (Verified 10/09/24 09:38) HPI Comments Details: Patient presents here for longstanding history of symptomatic hemorrhoids. He complains of pain, bleeding, and swelling. Sometimes he has to manually reduced them. He has had colonoscopy in the past which according to the patient has demonstrated no other pathology. He denies any history of chronic constipation or hard stool. No anal receptive practice. Chart was reviewed and patient evaluated Patient is hearing impaired [facility] Medical History (Updated 10/09/24 @ 09:39 by Hailey Freitas Kalani) Cochlear hearing loss Sinusitis Hyperlipidemia BMI 37.0-37.9, adult Morbid obesity Hearing loss Surgical History (Updated 10/09/24 @ 10:49 by Garland Norton MD) No history of previous surgery Family History Mother HIV (human immunodeficiency virus infection) Father HIV (human immunodeficiency virus infection) Son No problems noted. Son No problems noted. Son No problems noted. Daughter No problems noted. Daughter No problems noted. Daughter No problems noted. Social History Housing: Apartment Alcohol intake: never Patient Tobacco Use Status: Never used Tobacco e-Cigarette/Vaping Use: Never Used Second Hand Smoke Exposure: No service: No Current occupational status: unemployed Cognitive needs: No Hearing needs: Yes Vision needs: Yes Physical Exam Vital Signs: Last Vital Signs Pulse 60 10/09/24 09:39 BP 138/94 H 10/09/24 09:39 BMI result Body Mass Index 39.5 Chest Other: Chest sounds bilaterally, HS 1 in 2 GI Other: Abdomen corpulent, soft, benign. Rectal exam demonstrates moderately sized internal and external hemorrhoids. Rectal exam was deferred secondary to patient's discomfort. What appeared to be a small posterior anal fissure was also seen. Assessment & Plan Assessment & Plan (1) Hemorrhoids: Code(s): K64.9 - Unspecified hemorrhoids Category: Surgical Qualifiers: Hemorrhoid type: first degree Qualified Code(s): K64.0 - First degree hemorrhoids Plan Patient has had many years as the symptomatic hemorrhoids and would like to have them surgically treated. Risks, benefits, alternatives of hemorrhoidectomy reviewed with the patient and included but not limited to bleeding, infection, recurrence, numbness, pain, scarring, few incontinence, the patient wishes to proceed. All questions answered. He will receive a many bowel prep day prior. All questions answered. Arrangements will be made for this on a day which is convenient for him. Coding Level of Care Code New Pt Level 5 (71699) Diagnoses Grade I hemorrhoids K64.0 Hemorrhoid type: first degree
[2024-10-09 09:39] VITALS: BP 138/94; PULSE 60; BMI 39.5
--- OUTSIDE RECORDS SUMMARY | 2024-10-09 10:32 | XMS_ITS | Clinical Summary ---
[facility] Organization [facility] Address [address] [place] [address] Care Team Providers Care Environmental Specialist Name Role Phone Unavailable Primary Care Provider [...] age to complete this topic Meningococcal B Vaccine Aged Out No l onger eligible based on patient's age to complete [...]
== END 2024-10-09 09:58 | disposition home or self-care (01) ==
PROVIDERS: PCP Internal Medicine; Referring Provider Internal Medicine; Visit Provider Surgery
DX: K64.0 First degree hemorrhoids (principal)
CPT/HCPCS: 99214

== ENCOUNTER → 2024-10-09 09:25 | Outpatient (BNVA) | payer OTHER, SELFPAY | PROVIDERS: PCP Internal Medicine; Referring Provider Internal Medicine; Visit Provider Surgery | DX: K64.0 First degree hemorrhoids (principal); K59.00 Constipation, unspecified | CPT/HCPCS: 99212 ==

== ENCOUNTER 2024-10-22 09:47 | Outpatient (REF) | payer OTHER, SELFPAY ==
--- NOTE | ~2024-10-22 | FL_ITS ---
EXAMINATION: XR FLUOROSCOPY UPPER GI WITH AIR CLINICAL INFORMATION: Obesity COMPARISON: None available. TECHNIQUE: Routine upper GI air contrast study was performed in upright and lying position. FINDINGS: Following oral administration of thick barium and effervescent granules there is normal propagation of bolus from the oral cavity through the pharynx, esophagus into stomach without any evidence of obstruction, narrowing or stricture. On supine and prone lying On placing patient in supine and prone lying there is small sliding hiatal hernia with moderate gastroesophageal reflux in the mid thorax. Otherwise rest the course, caliber and peristalsis of the stomach, duodenal bulb and this CT is normal. The mucosal pattern of the stomach is normal. FLUOROSCOPY TIME: 2 minute 6 seconds DOSE AREA PRODUCT: 2830 uGy-m2 (microgray-meter squared) FL/FL upper GI w air IMPRESSION: Small sliding hiatal hernia with moderate gastroesophageal reflux. Electronically signed by: rA Anderson MD 10/22/2024 02:29 PM EDT
--- OUTSIDE RECORDS SUMMARY | 2024-10-22 11:06 | XMS_ITS | Data Portability ---
Author Organization ID - [facility], Allergy Address [address] [place] [id number] Care Team Providers Care Linting Machine Operator Name Role Phone LENI ORLANDO Primary Care Provider Assessment Encounter Date Assessment Date Assessment LastModified [...] be implanting the left ear with the Volumental CI 632implant. After full discussion, the patient would like to proceed with surgery. I have provided patient with the contact information for my assistant professor surgical technology. We will begin the scheduling process and see the patient back at the time of surgery. Patient will not require medical clearance from their primary care provider preoperatively. [email or web address] Not available 06/11/2024 10:45:27 07/27/2024 07/27/2024 48 [...] cochlear device implantat ion (SURG) 2023 024 [email or web address] Not available 06/11/2024 10:53:52 Imaging None recorded. Medication Orders None recorded. Patient TargetsNo targets recorded. Patient InstructionsNo instructions recorded. Reason for Referral None Reported. Results Created Date Observation Date Name Description Value Unit Range Abnormal Flag Note LastModifiedBy Organization Detail LastModifiedTime 06/12/2010/28/2023 audio gram No observ ation record ed. [email or web address] Not Available 05/27 09:29:17 06/12/2006/11/2024 CT, tempo ral bone, w/o contr ast No observ ation record ed. [email or web address] [facility] [address], [place], [address], 06/13/2024 16:33:29 06/13/20 24 06/11/2024 CT, tempo ral bone, w/o contr ast No observ ation record ed. [email or web address] [facility] [address], [place], [address], 06/13/2024 16:33:29 07/23/19 25 07/23/2024 fluor oscop y (PROC ) No observ ation record ed. [address] [place], [address], 07/23/2024 13:07:29 Result Notes None recorded. Problems Name Problem SNOMED Code Status Onset Date Resolution Date Notes Provider Name and Address Organization Details Recorded Time Sensorineural hearing loss of bilateral ears [id number] Active 2023 NISHI MARTINEZ MD [address], [address], [facility] - [facility] 20:25:39 Problem Notes None recorded. Procedures Surgical History Date Name Laterality Status Provider Name and Address Organization Details Recorded Time 07/20/19 25 COCHLEAR DEVICE IMPLANTATION (SURG) completed Satish Gannon ID - [facility] 07/23/2024 16:49:28 06/11/[address] temporal bones - Xoran completed NISHI MARTINEZ MD 100 [facility],[address], [address], [facility] - [facility] 06/11/2024 10:16:12 Imaging Results Imaging Date Name Status LastModified by Organiz ation Details LastModified Time 10/28/2023 audiogram completed [email or web address] Information n ot available 06/12/2024 09:29:17 06/11/2024 CT, temporal bone, w/o contrast completed [email or web address] [address] [facility] [address], [place], [address], 06/13/2024 16:33:29 06/11/2024 CT, temporal bone, w/o contrast [place] [address] [facility] [address], [place], [address], 06/13/2024 16:33:29 07/23/2024 fluoroscopy (PROC) completed [address] [place], [address], 07/23/2024 13:07:29 Procedure Notes None recorded. Medical Equipment Implant [employer] Issuing Agency Serial Number Lot Number Status Provider Name and Address Organization Details Recorded Time Cochlear implanr [facility] [id number] NISHI MARTINEZ MD 100 [facility] [address], [place], [address] , [place] - [facility] 14:43:07 Cochlear implant FDA [id number] Y NISHI MARTINEZ MD 100 [facility] [address], [place], [id number] , [place] - [facility] 14:43:47 Allergies No known drug allergies [...] Updated DateTime 06/11/2024 170.18 cm 39.2 kg/m2 138791.09 g Maria M Delgado [place] - [facility] 06/11/2024 09:40:10 Date Recorded Body height Body weight Provider Name and Address Organization Details Last Updated DateTime 07/27/2024 170.18 cm 866317.09 g Leni Ingram [place] - [facility] 07/27/2024 11:30:23 Social History None recorded. [...] SNOMED-CT Code Diagnosis ICD10 Code Diagnosis Note [id number] NISHI MARTINEZ MD [facility] [address] [address] 06/11/2024 09:08:50 06/11/2024 11:06:26 Sensorineural hearing loss of bilateral ears 577287932 H90.3 [id number] GAVIN GUZMAN MD [facility] [address] [address] 07/27/2024 11:09:30 07/27/2024 13:54:28 Postoperative visit [id number] Z48.89 Sensorineu ral hearing loss of bilateral ears [id number] H90.3 Health Concerns Section Related Observation LastModified by Organization Detai ls LastModified Time None Recorded Concern Status LastModified by Organization Details LastModified Time None Recorded Advance Directives Directive None Recorded Payers Encounter Date Sequence Insurance Name Policy Number Policy Davidson Covered Member ID Davidson Member ID Guarantor Name 06/11/2024 1 [facility] [employer] COUNTS INCLUDE 234 BEDS AT THE [facility] PLAN (MEDICAID HMO) JOSUE Mcdaniels [id number] Otto Mcdaniels 07/27/2024 1 [facility] [employer] COUNTS INCLUDE 234 BEDS AT THE [facility] PLAN (MEDICAID HMO) JOSUE Mcdaniels [id number] Otto Mcdaniels Notes Date Note Type Note Provider Name and Address Organization Details Recorded Time 06/11/2024 text/html 48-year-old Ugandan-speaking male with bilateral severe to profound sensorineural hearing loss.. Patient started losing his hearing at age 6 and the hearing loss has been progressive over the years. He did not start using hearing aids until he was about 26 years of age but has been using them consistently since the early . He underwent cochlear implant evaluation at the [facility] back in October 2023 and was found to meet the audiologic candidacy criteria for cochlear implantation in both ears. Patient has expressed interest in implantation of the left ear. He has met with the Cochlear recipient global manager Carley Hardy. Patient is accompanied by his today who is helping with Ugandan translation. Patient did have a pneumococcal Prevnar 20 vaccine back in November. NISHI MARTINEZ MD [address] [place] [address],[address], [address], [facility] - [facility] 06/11/2024 10:47:30 07/27/2024 text/html 48-year-old male presents following cochlear implant on 07/20/[address] Martinez. Patient is doing well post-operatively. Denies pain, dizziness, taste disturbance, numbness, worse hearing loss, or otorrhea. GAVIN GUZMAN MD 100 [facility],[place] [address], [place], [address], [facility] 07/27/2024 13:45:39
--- OUTSIDE RECORDS SUMMARY | 2024-10-22 11:06 | XMS_ITS | Clinical Summary ---
Author Organization [facility]y Address [address] [place] [address] Care Team Providers Care Hog Operator Name Role Phone Unavailable Primary Care Provider [...]
== END 2024-10-22 09:48 | disposition home or self-care (01) ==
LOC: HO.XRAY 09:47
PROVIDERS: PCP Internal Medicine; Visit Provider Surgery
DX: E66.9 Obesity, unspecified (principal); Z68.37 Body mass index [BMI] 37.0-37.9, adult; E78.5 Hyperlipidemia, unspecified
CPT/HCPCS: 74246

== ENCOUNTER → 2024-10-22 09:49 | Outpatient (BNV) | payer OTHER, SELFPAY | PROVIDERS: PCP Internal Medicine; Visit Provider Radiology Diagnostic Radiology | DX: E66.9 Obesity, unspecified (principal) | CPT/HCPCS: 74246 ==

== ENCOUNTER 2024-12-03 14:18 | Outpatient (AMB) | payer OTHER, SELFPAY ==
--- NOTE | 2024-12-03 14:27 | A.OFFPC_ITS ---
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 He is due for a tetanus vaccination and is willing to receive it today. Furthermore, there is a delay in the planned stomach surgery because of ear- related issues, which have complicated communication with relevant healthcare teams. His medical history includes being a non-smoker and non-alcohol user, and he is required to undergo some laboratory work. [facility] Medical History (Updated 12/03/24 @ 14:51 by Leni Rodriguez MD) Bleeding hemorrhoids Cochlear hearing loss Sinusitis Hyperlipidemia BMI 37.0-37.9, adult Morbid obesity Hearing loss Surgical History (Updated 12/03/24 @ 14:51 by Leni Rodriguez MD) Cochlear implant in place No history of previous surgery Family History Mother HIV (human immunodeficiency virus infection) Father HIV (human immunodeficiency virus infection) Son No problems noted. Son No problems noted. Son No problems noted. Daughter No problems noted. Daughter No problems noted. Daughter No problems noted. Social History Housing: Apartment Alcohol intake: never Patient Tobacco Use Status: Never used Tobacco e-Cigarette/Vaping Use: Never Used Second Hand Smoke Exposure: No service: No Current occupational status: unemployed Cognitive needs: No Hearing needs: Yes Vision needs: Yes Questionnaire PHQ-9 Over the last 2 weeks, how often have you been bothered by any of the following problems? 1. Little interest or pleasure in doing things: several days 2. Feeling down, depressed, or hopeless: not at all 3. Trouble falling or staying asleep, or sleeping too much: not at all 4. Feeling tired or having little energy: not at all 5. Poor appetite or overeating: not at all 6. Feeling bad about yourself - or that you are a failure or have let yourself or your family down: not at all 7. Trouble concentrating on things, such as reading the newspaper or watching television: not at all 8. Moving or speaking so slowly that other people could have noticed. Or the opposite - being so fidgety or restless that you have been moving around a lot more than usual: not at all 9. Thoughts that you would be better off or of hurting yourself in some way: not at all Total score: 1 Depression Screening Interpretation: Negative Depression Screening Done: Yes 40208 - PHQ-9 Billing: Yes Source: Developed by Drs. Romie Zabala, Addis Dc, Enoch Adams and colleagues, with an educational carri from [employer]. Thrive Questionnaire Date Thrive assessed: 10/01/24 I am a: Patient What is your living situation today?: I have a steady place to live Within the past 12 months, did the food you bought not last and you didn't have the money to get more?: I choose not to answer this question Within the past 12 months, did you worry whether your food would run out before you got money to buy more?: I choose not to answer this question Do you have trouble paying for medicines?: No Do you have trouble getting transportation to medical appointments?: No Do you have trouble paying your heating and electricity bill?: No Do you have trouble taking care of your child, family member or friend?: No Do you have trouble with day-to-day activities such as bathing, preparing meals, shopping, managing finances, etc.?: No Are you currently unemployed and looking for a job?: I choose not to answer this question Are you interested in more education?: No Please select the resources that you would like help with: None Currently or been in a relationship where the following occur: I choose not to answer THRIVE Score: 0 AUDIT C Alcohol Use Questionnaire (AUDIT-C) 1. How often do you have a drink containing alcohol?: Never Total Score: 0 Score Reviewed/Action Taken: No MARTY-7 AMB Questionnaire MARTY-7 Date MARTY - 7 assessed: 10/01/24 Feeling nervous, anxious, or on edge: 0 = Not at all Not being able to stop or control worryin = Not at all Worrying too much about different things: 0 = Not at all Trouble relaxin = Not at all Being so restless that it is hard to sit still: 0 = Not at all Becoming easily annoyed or irritable: 0 = Not at all Feeling afraid as if something awful might happen: 0 = Not at all Total MARTY-7 score (0-4 normal; 5-9 mild; 10-14 moderate; 15-21 severe): 0 Source: Developed by Drs. Romie Zabala, Addis Dc, Enoch Adams and colleagues, with an educational carri from [employer]. MARTY-7 Assessment Billing MARTY-7 Assessment Tool: MARTY-7 Assessment 74760 Review of Systems Const All systems reviewed & are unremarkable except as noted in HPI and below Card Denies chest pain at rest, Denies chest pain with activity, Denies edema, Denies irregular heart rhythm, Denies claudication, Denies dyspnea, Denies dyspnea on exertion, Denies orthopnea, Denies paroxysmal nocturnal dyspnea and Denies slow heart rate Resp Denies cough, Denies dyspnea and Denies dyspnea on exertion GI Denies abdominal pain, Denies change in bowel habits, Denies excessive flatus, Denies nausea and Denies vomiting Neuro Denies behavioral changes and Denies lack of coordination Psych Denies behavioral changes Physical exam (Primary Care) Vital Signs: Last Vital Signs BP 132/86 12/03/24 14:28 BMI result Body Mass Index 38.8 BMI Assessment/Plan discussion: High BMI High, discussed plan: lifestyle, weight reduction, dietary and physical activity Tobacco/Smoking Status: Tobacco use Status Tobacco use date assessed 10/01/24 12/03/24 14:36 Patient Tobacco Use Status Never used Tobacco 12/03/24 14:36 e-Cigarette/Vaping Use Never Used 12/03/24 14:36 PHQ-9: PHQ-9 Score PHQ-9: Total score 1 12/03/24 14:55 Depression Screening Interpretation: Negative Thrive Assessment: Date of Thrive Assessment Date Thrive assessed 10/01/24 12/03/24 14:36 Currently or been in a relationship where the following occur: I choose not to answer HENMT Head: Yes normal to inspection, Yes normocephalic and Yes atraumatic Eyes General: appearance normal, both eyes and all related structures Eyelids: Yes eyelids normal Conjunctivae: conjunctivae normal Neck Neck: Yes normal visual inspection and Yes supple Resp Effort & Inspection: normal respiratory effort Auscultation: clear to auscultation bilaterally Cardio Jugular venous distension: no JVD Rate: regular rate Rhythm: regular rhythm Heart sounds: S1 normal heart sound present and S2 normal heart sound present GI Inspection: Yes normal to inspection Palpation (GI): Soft to palpation and nontender Auscultation: normal bowel sounds Skin General skin exam: no rashes or lesions noted Neuro General: no focal motor deficits Extrem General: Yes full ROM Psych Appearance: grossly normal Immunizations Boostrix Tdap 2.5 Lf unit-8 mcg-5 Lf/0.5 mL intramuscular syringe Performing Provider: Leni Rodriguez MD [facility] Administered by: CHARMAINE Kirkpatrick on 12/03/24 14:55 Dose Route Admin Location Dispensed Lot Number Expiration Date [facility] Raw Sampler 0.5 mL IM Left Deltoid 0.5 mL [id number] 02/23/27 85350-150-66 [facility] V[facility] Given Date VIS Provided VIS Publication Date 12/03/24 Single Vaccine 24 Eligibility Eligibility Date Funding Source Not [facility] Eligible 12/03/24 Private Coding Level of Care Code Est Pt Prev Care 40-64y(16446) Diagnoses Physical exam Z00.00 Additional Codes MARTY-7 Assessment Billing - MARTY-7 Assessment Tool: MARTY-7 Assessment 75706 ([id number]) PHQ-9 - 44851 - PHQ-9 Billing: Yes ([id number]) Time Spent (min) 31 Assessment & Plan Assessment & Plan (1) Physical exam: Code(s): Z00.00 - Encounter for general adult medical examination without abnormal findings Category: Medical Plan The patient will receive the tetanus vaccination during today?s visit. Coordination for the pending stomach surgery is ongoing, considering the ear- related issues that have caused postponement. Efforts are aimed at enhancing communication among healthcare providers to reschedule the surgery promptly. The patient is also instructed to perform laboratory tests fasting. Patient was informed and verbally consented to the use of an ambient scribe for clinic note documentation during this visit. I explained the importance of updating his tetanus vaccination, which will be administered today as agreed. We discussed the delay in his planned stomach surgery and how ear-related issues have impacted scheduling. I assured him of continued efforts to improve communication with the surgical team to resolve this delay. He is informed about the need to complete laboratory tests while fasting, as discussed. Orders: Orders TDaP Immunization Today Z23 - Encounter for immunization Medications: New Boostrix Tdap (diphth,pertus(acell),tetanus) 0.5 mL IM ONCE 0.5 mL 0RF NS Z23 - Encounter for immunization Patient Instructions: - Receive the tetanus vaccination today. - Complete laboratory tests while fasting. - Follow up on surgery rescheduling and coordination.
[2024-12-03 14:28] VITALS: BP 132/86; BMI 38.8
--- OUTSIDE RECORDS SUMMARY | 2024-12-03 16:16 | XMS_ITS | Clinical Summary ---
Author Organization [facility] Address [address] [place] [address] Care Team Providers Care Capsule Maker Name Role Phone Unavailable Primary Care Provider [...]
== END 2024-12-03 14:59 | disposition home or self-care (01) ==
LOC: HO.HMCH 14:19
PROVIDERS: PCP Internal Medicine; Visit Provider Internal Medicine
DX: Z23 Encounter for immunization (principal); Z00.00 Encounter for general adult medical examination without abnormal findings

== ENCOUNTER → 2024-12-03 14:18 | Outpatient (BNVA) | payer OTHER, SELFPAY | PROVIDERS: PCP Internal Medicine; Visit Provider Internal Medicine | DX: Z00.00 Encounter for general adult medical examination without abnormal findings (principal); Z23 Encounter for immunization; Z13.31 Encounter for screening for depression | CPT/HCPCS: 90471; 90715; 96127; 99396 ==

== ENCOUNTER 2024-12-14 09:09 | Day surgery (SDC) | payer OTHER, SELFPAY ==
--- OUTSIDE RECORDS SUMMARY | 2024-12-05 16:57 | XMS_ITS | Clinical Summary ---
Author Organization [facility] Address [address] [place] [address] Care Team Providers Care Harbor Engineer Name Role Phone Unavailable Primary Care Provider [...]
[2024-12-12 10:49] VITALS: BMI 39.2
[2024-12-14] VITALS (8 sets, daily range): BP systolic 105–138; BP diastolic 58–84; PULSE 58–81; RESP 14–18; TEMP 36.3–36.8; O2SAT 95–97; BMI 38.3
[2024-12-14] MEDS: Lactated Ringers 1,000 ML 100 ML IVCONT (09:43)
--- NOTE | 2024-12-14 09:50 | HO.ANESPROP2 ---
Documented by User: Jennifer Parker NP 12/13/24 09:43 HPI - Anesthesia Eval Consult details Narrative: 49yo M for EUA,Hemorrhoidectomy Cochlear implant PMFSH Active Problems Active Problems: All Active Problems Bleeding hemorrhoids (Acute) GUZMAN (nonalcoholic steatohepatitis) (Acute) Hemorrhoids (Acute) Inappropriate diet and eating habits (Acute) Submandibular lymphadenopathy (Acute) Physical exam (Acute) Pterygium (Acute) Cataract (Acute) Elevated fasting glucose (Acute) Low vitamin D level (Acute) Hemorrhoids (Acute) Left wrist pain (Acute) Preoperative clearance (Acute) Obesity (BMI 30-39.9) (Acute) Hyperlipidemia (Acute) BMI 37.0-37.9, adult (Acute) Hearing loss (Acute) Past Medical History Medical History Bleeding hemorrhoids Cochlear hearing loss Sinusitis Hyperlipidemia BMI 37.0-37.9, adult Morbid obesity Hearing loss Family History Family History Mother HIV (human immunodeficiency virus infection) Father HIV (human immunodeficiency virus infection) Son No problems noted. Son No problems noted. Son No problems noted. Daughter No problems noted. Daughter No problems noted. Daughter No problems noted. Surgical History Surgical History Cochlear implant in place No history of previous surgery History of Problems with Anesthesia: No Social History Social History Housing: Apartment Are you a primary home care liaison to a significant other at home: No Do you presently have visiting nurse or other home services: No Alcohol intake: never Patient Tobacco Use Status: Never used Tobacco e-Cigarette/Vaping Use: Never Used Second Hand Smoke Exposure: No Use of substances other than those prescribed or required for medical reasons: No Have you been hit, kicked, punched, or otherwise hurt by someone within the past year? If so, by whom?: No Advance Directives: No Advance Directives Information Provided: Yes Poor oral hygiene: No service: No Current occupational status: unemployed Cognitive needs: No Hearing needs: Yes Vision needs: Yes Meds Allergies Allergy/AdvReac Type Severity Reaction Status Date / Time No Known Allergies (No Known Allergy Verified 12/14/24 09:26 Allergies*) Home Medications ?Medication ?Instructions ?Recorded ?Confirmed ?Last Taken ?Type ascorbate calcium (vitamin C) 500 500 mg PO DAILY 05/01/24 12/14/24 Unknown History mg tablet multivit,Ca,min-iron 8 mg-folic 1 tab PO DAILY 05/01/24 12/14/24 Unknown History acid 200 mcg-lycopene 600 mcg tablet (Centrum Ultra Men's) Exam Height,Weight and Vital Signs: Height 5 ft 7 in Weight 113.398 kg Assessment and Plan Assessment Anesthesia Assessment: Chart Reviewed Final Anesthetic Review History of Problems with Anesthesia: No Documented by User: Vianney Keen DO 12/14/24 11:00 [facility] Past Medical History Medical History Bleeding hemorrhoids Cochlear hearing loss Sinusitis Hyperlipidemia BMI 37.0-37.9, adult Morbid obesity Hearing loss Family History Family History Mother HIV (human immunodeficiency virus infection) Father HIV (human immunodeficiency virus infection) Son No problems noted. Son No problems noted. Son No problems noted. Daughter No problems noted. Daughter No problems noted. Daughter No problems noted. Family history of problems with anesthesia: No Surgical History Surgical History Cochlear implant in place No history of previous surgery History of Problems with Anesthesia: No Social History Social History Housing: Apartment Are you a primary home care liaison to a significant other at home: No Do you presently have visiting nurse or other home services: No Alcohol intake: never Patient Tobacco Use Status: Never used Tobacco e-Cigarette/Vaping Use: Never Used Second Hand Smoke Exposure: No Use of substances other than those prescribed or required for medical reasons: No Have you been hit, kicked, punched, or otherwise hurt by someone within the past year? If so, by whom?: No Advance Directives: No Advance Directives Information Provided: Yes Poor oral hygiene: No service: No Current occupational status: unemployed Cognitive needs: No Hearing needs: Yes Vision needs: Yes Meds Allergies Allergy/AdvReac Type Severity Reaction Status Date / Time No Known Allergies (No Known Allergy Verified 12/14/24 09:26 Allergies*) Home Medications ?Medication ?Instructions ?Recorded ?Confirmed ?Last Taken ?Type ascorbate calcium (vitamin C) 500 500 mg PO DAILY 05/01/24 12/14/24 Unknown History mg tablet multivit,Ca,min-iron 8 mg-folic 1 tab PO DAILY 05/01/24 12/14/24 Unknown History acid 200 mcg-lycopene 600 mcg tablet (Centrum Ultra Men's) Exam Exam Date and Time: 12/14/24954 Height,Weight and Vital Signs: Height 5 ft 7 in Weight 113.398 kg Vital Signs Temperature 98.2 F 12/14/24 09:33 Pulse Rate 75 12/14/24 09:33 Respiratory Rate 14 12/14/24 09:33 Blood Pressure 138/84 12/14/24 09:33 Pulse Oximetry 95 12/14/24 09:33 Oxygen Delivery Method Room Air 12/14/24 09:33 Temperature 98.2 F 12/14/24 09:33 Pulse Rate 75 12/14/24 09:33 Respiratory Rate 14 12/14/24 09:33 Blood Pressure 138/84 12/14/24 09:33 Pulse Oximetry 95 12/14/24 09:33 Oxygen Delivery Method Room Air 12/14/24 09:33 Airway Mallampati Class: III TM Dist: <=3cm Neck ROM: Full Loose/Missing/Broken Teeth: No (patient denies any loose or broken teeth) Heart: S1S2 Lungs: CTAB Assessment and Plan Assessment Anesthesia Assessment: Anesthesia Plan Discussed and Chart Reviewed Final Anesthetic Review Family History of Problems with Anesthesia: No History of Problems with Anesthesia: No NPO: Yes ASA Class: II Final Preanesthetic Review: No Changes in Pt Med Stat, Meds/Allgs Chart Reviewed, Consent Obtained/Reviewed (access control officer at bedside for translation) and Anes Risks/Benef Reviewed Patient Risk: Low Procedure Risk: Low Anesthetic Plan Anesthetic Plan: GA and Agree w/ Assess. and Plan Disposition: Standard PACU
--- NOTE | 2024-12-14 10:00 | MHC.SHP ---
Pre-Procedural Eval Section A - 24 Hr Update-Section A only Date of Service: 12/14/24 Section B - Complete if H&P > 30 days Chief Complaint: Unspecified hemorrhoids Details of Present Illness: Chronic complaints of pain, bleeding and prolapse with his hemorrhoids Relevant Family History (Specify if Yes): No Relevant Social History: None Present Medications: see Short Stay Collaborative assessment Allergies: Allergies Allergy/AdvReac Type Severity Reaction Status Date / Time No Known Allergies (No Known Allergy Verified 12/14/24 09:26 Allergies*) Review of Systems Sugical H&P ROS: Negative: Constitution, Respiratory and Gastrointestinal Exam Surgical H&P Exam: Normal: Heart, Normal: Lungs and Normal: Abdomen Plan Diagnosis/Plan: Unchanged I have reviewed the history and physical and performed a pertinent physical examination on my patient. No changes have occurred unless specified. Time Spent With Patient Time: Total time managing care of this patient today ____ minutes.
[2024-12-14] MEDS: cefoTEtan disodium 2 GM VIAL IVPUSH (10:10)
--- NOTE | 2024-12-14 10:36 | W.PM.OPN ---
Operative Note Operative Note Date of Service: 12/14/24 Narrative: Preop diagnosis: Internal external hemorrhoids with prolapse, bleeding and pain Postop diagnosis: The same Procedure: Exam under anesthesia hemorrhoidectomy x3 columns Surgeon: Ramses Logan MD The patient is a 49-year-old male with a long history of complaints of prolapse, pain and bleeding with the hemorrhoids. Understood the technique of the planned procedure as was the risks, benefits, and alternatives He was brought to the operating room. He was placed in prone dalila-knife position under general anesthesia via endotracheal tube. The buttocks were retracted with wide tape laterally. The perianal area was prepped and draped in the usual sterile fashion. A surgical time-out was done. The patient received Cefotan 2 g IV preoperatively Examination of the anal orifice showed hemorrhoidal columns he had 2 a mix of internal external on both the left and right side. I inserted the Lisa Moore retractor. I examined the anal canal circumferentially after infiltration of the perianal area with lidocaine 1%. Examination of the entire anal canal showed large internal external hemorrhoidal columns on both the left and right side. There was note of an external hemorrhoidal column posteriorly as well that was not bulky I applied a Fleming grasper on the hemorrhoidal column on the right to retract this out of the field. I made a wymnlh-ac-hthfk stitch at the pedicle with a chromic 3-0 past the dentate line. I made an incision around this hemorrhoidal column to the perianal skin with a blade 15. I excised this hemorrhoidal column along this incision above the plane of the sphincters using scissors. I closed the incision with a running chromic 3-0 stitch. Additional hemostatic fzjuhd-kj-vonpm sutures were placed for oozing areas The same procedure was duplicated on the hemorrhoidal column on the left. Again this was retracted with a Fleming grasper. I made a dzwiqc-ot-ockbl stitch at the pedicle and made an incision around this. I excised this hemorrhoidal column above the sphincters using scissors. I closed the incision with a running chromic 3-0 stitch with additional hemostatic sutures placed There was note of a small external hemorrhoidal column perianal skin was excised with electrocautery. The excised surface was cauterized I observed for hemostasis. Once hemostasis was confirmed, I removed the Lisa Moore retractor. I infiltrated the perianal area generously with Marcaine 0.5% for postop analgesia. The patient tolerated procedure well. There were no immediate complications. Initial and final counts of sponges and instruments were correct. Estimated blood loss about 50 cc The patient was extubated without difficulty and transferred to the recovery room with stable vital signs.
== END 2024-12-14 12:45 | disposition home or self-care (01) ==
PROVIDERS: PCP Internal Medicine; Visit Provider Surgery
PROC: (CPT 46260; principal; 2024-12-14 11:20)
DX: K64.8 Other hemorrhoids (principal); K64.4 Residual hemorrhoidal skin tags; E78.5 Hyperlipidemia, unspecified; E66.01 Morbid (severe) obesity due to excess calories; Z68.39 Body mass index [BMI] 39.0-39.9, adult; K75.81 Nonalcoholic steatohepatitis (NASH); Z79.02 Long term (current) use of antithrombotics/antiplatelets; Z79.899 Other long term (current) drug therapy
CPT/HCPCS: 46260; 88304; J0131; J0330; J1100; J1885; J2003; J2250; J2405; J2704; J2795; J3010

== ENCOUNTER → 2024-12-14 09:09 | Outpatient (BNV) | payer OTHER, SELFPAY | PROVIDERS: PCP Internal Medicine; Visit Provider Surgery | DX: K64.8 Other hemorrhoids (principal) | CPT/HCPCS: 46260 ==

== ENCOUNTER 2024-12-27 10:26 | Outpatient (AMB) | payer OTHER, SELFPAY ==
--- NOTE | 2024-12-27 11:07 | MHC.OFFVIS ---
Vital Signs 12/27/24 11:08 Weight 246 lb BP 140/88 H Blood Pressure Location Rt brachial Position Sitting Pulse 71 Intake Visit Reasons: S/P hemorrhoidectomy Intake Note: Patient here s/p hemorrhoidectomy x3 columns on 12-14-2024. Patient c/o: constipation for the past 2d. Was unable to brick picker Colace and pain med rx's due to wrong pharmacy on file. Polymer Engineer Required: Yes Polymer Engineer Name: Hailey MONTANO Accompanied by: Self / Same As Patient Allergies No Known Allergies (No Known Allergies*) Allergy (Verified 12/27/24 11:09) HPI HPI S/P hemorrhoidectomy: Details: He had undergone hemorrhoidectomy 2 weeks ago and is here for postop visit. He denies significant pain. He does state that he has been constipated. He said he was never able to get his postop meds as this was sent to a different pharmacy. Denies any fever or chills. [facility] Medical History Bleeding hemorrhoids Cochlear hearing loss Sinusitis Hyperlipidemia BMI 37.0-37.9, adult Morbid obesity Hearing loss Surgical History H/O hemorrhoidectomy Cochlear implant in place No history of previous surgery Family History Mother HIV (human immunodeficiency virus infection) Father HIV (human immunodeficiency virus infection) Son No problems noted. Son No problems noted. Son No problems noted. Daughter No problems noted. Daughter No problems noted. Daughter No problems noted. Social History Housing: Apartment Are you a primary managed care provider to a significant other at home: No Do you presently have visiting nurse or other home services: No Alcohol intake: never Patient Tobacco Use Status: Never used Tobacco e-Cigarette/Vaping Use: Never Used Second Hand Smoke Exposure: No service: No Current occupational status: unemployed Cognitive needs: No Hearing needs: Yes Vision needs: Yes Review of Systems Const Denies chills and Denies fever(s) GI Denies hematochezia Physical Exam Vital Signs: Last Vital Signs Pulse 71 12/27/24 11:08 BP 140/88 H 12/27/24 11:08 Const General: comfortable and no acute distress Resp Effort & Inspection: normal respiratory effort GI Other: Rectal exam shows the hemorrhoidectomy sites to be well healed Palpation (GI): Soft to palpation Assessment & Plan Assessment & Plan (1) Bleeding hemorrhoids: Code(s): K64.9 - Unspecified hemorrhoids Category: Medical Plan: Status post hemorrhoidectomy. His incisions are well healed. There is no evidence of infection . His path report shows hemorrhoids. I advised him to continue taking stool softeners because of his constipation. He also wanted to have some pain medications he had never got his pain meds postop He can see me in the office on a p.r.n. basis. Medications: New docusate sodium (Colace) 100 mg PO BID 60 caps 0RF psyllium seed (sugar) (Metamucil (sugar) oral powder) 1 tbsp PO DAILY 1,254 grams 0RF tramadol 50 mg PO TID PRN 20 tabs 0RF pain ibuprofen 600 mg PO TID PRN 20 tabs 0RF pain Coding Level of Care Code Global (05571) Diagnoses Bleeding hemorrhoids K64.9
[2024-12-27 11:08] VITALS: BP 140/88; PULSE 71
--- OUTSIDE RECORDS SUMMARY | 2024-12-27 11:10 | XMS_ITS | Data Portability ---
Author Organization [place] - [facility], Allergy Address [address] [place] [phone] Care Team Providers Care Securities Adviser Name Role Phone LENI ORLANDO Primary Care Provider [facility] Digital Librarian [phone] Assessment Encounter Date Assessment Date Assessment LastModified [...] be implanting the left ear with the Absolute [employer] CI 632implant. After full discussion, the patient would like to proceed with surgery. I have provided patient with the contact information for my surgical appliances salesperson. We will begin the scheduling process and see the patient back at the time of surgery. Patient will not require medical clearance from their primary care provider preoperatively. [email or web address] Not available 06/11/2024 10:45:27 07/27/2024 07/27/2024 48 [...] and with Dr. Martinez in 3 months. [email or web address] Not available 07/27/2024 13:45:32 11/22/2024 11/22/2024 Left ear has healed well following placement of cochlear implant. He will continue to follow-up with the [facility] Co[facility]ar [facility]plant Program for cochlear implant mapping. Patient would like to go ahead and proceed with implantation of the right ear. This would certainly give him significant benefit with hearing in noise and with directional hearing. The patient has already been found to meet the anatomic and audiologic candidacy criteria for cochlear implantation in the right ear. Today we discussed the risks, benefits, and [...] with implantation. We will be implanting the right ear with the Absolute Commerce CI 632implant. After full discussion, the patient would like to proceed with surgery. I have provided patient with the contact information for my surgical appliances salesperson. We will begin the scheduling process and see the patient back at the time of surgery. Patient will not require medical clearance from their primary care provider preoperatively. Patient has been specifically instructed to call [facility] audiology to set up post implant activation and mapping sessions once he knows his surgical date [email or web address] Not available 11/22/2024 15:38:30 Plan of Treatment Reminders Order Date Submit Date Provider Last Modified By Organization Details Last Modified Time Details Appointments None recorded. Lab None recorded. Referral None recorded. Procedures None recorded. Surgeries cochlear device implantatio n (SURG) 2024 025 [email or web address] Not available 5 08:35:49 cochlear device implantatio n (SURG) 2023 024 9 Not available 4 10:53:52 Imaging None recorded. Medication Orders None recorded. Patient TargetsNo targets recorded. Patient InstructionsNo instructions recorded. Reason for Referral None Reported. Results Created Date Observation Date Name Description Value Unit Range Abnormal Flag Note LastModifiedBy Organization Detail LastModifiedTime 06/12/20 24 10/28/2023 audio gram No observ ation record ed. [email or web address] Not Available 05/27 09:29:17 06/12/20 24 06/11/2024 CT, tempo ral bone, w/o contr ast No observ ation record ed. [place] [id number] [facility] [address], [address], 06/13/2024 16:33:29 06/13/20 24 06/11/2024 CT, tempo ral bone, w/o contr ast No observ ation record ed. [place] [id number] [facility] [address] [facility] [address], [address], 06/13/2024 16:33:29 07/23/19 25 07/23/2024 fluor oscop y (PROC ) No observ ation record ed. [address] [facility], [place], [address], 07/23/2024 13:07:29 Result Notes None recorded. Problems Name Problem SNOMED Code Status Onset Date Resolution Date Notes Provider Name and Address Organization Details Recorded Time Sensorineural hearing loss of bilateral ears 015201970 Active 2023 NISHI MARTINEZ MD [address] [place], [place] [address], [phone], [facility] - [facility] 4 20:25:39 Problem Notes None recorded. Procedures Surgical History Date Name Laterality Status Provider Name and Address Organization Details Recorded Time 07/20/19 COCHLEAR DEVICE IMPLANTATION (SURG) completed Satish Gannon [place] - [facility] [place] 07/23/2024 16:49:28 06/11/20 CT temporal bones - Xoran completed NISHI MARTINEZ MD [address] [facility],[place] [address], [place], [address], [facility] - [facility] 06/11/2024 10:16:12 Imaging Results None recorded. Procedure Notes None recorded. Medical Equipment Implant SH[employer] Issuing Agency Serial Number Lot Number Status Provider Name and Address Organization Details Recorded Time Cochlear implanr FDA [id number] NISHI MARTINEZ MD [address] [facility],[place] [address], [place], [address] , [facility] - [facility] 5 14:43:07 Cochlear implant FDA [id number] Y NISHI MARTINEZ MD [address] [facility],[place] [address], [place], [address] , [facility] - [facility] 5 14:43:47 Allergies No known drug allergies Medications Name Sig Start Date Stop Date Status Note LastModified by Organization Details LastModified Time atorvastati n 10 mg tablet 1 TABLET BY MOUTH DAILY FOR 90 DAYS active Not Available Not Available No t Available ofloxacin 0.3 % eye drops INSTILL 1 DROP INTO RIGHT EYE FOUR TIMES A DAY CONTINUE DIRECTED 06/11 completed Not Available Not Available Not Available hydrocortis one 2.5 % topical cream with perineal applicator APPLY TO AFFECTED AREA RECTALLY 2 TO 4 TIMES A DAY NEEDED FOR HEMORRHOI DS FOR 7 DAYS 11/22 completed Not Available Not Available Not Available [...] 4 TO 6 HOURS FOR 3 DAYS 11/22 completed Not Available Not Available Not Available Vitamin D3 25 mcg (1,000 unit) tablet TAKE 1 TABLET BY MOUTH EVERY DAY active Not Available Not Available No t Available Vitals Date Recorded Body height Body weight Provider Name and Address Organization Details Last Updated DateTime 07/27/2024 170.18 cm 194158.09 g Leni Ingram [place] - [facility] 07/27/2024 11:30:23 Date Recorded Body height Body mass index (BMI) Body weight Provider Name and Address Organization Details Last Updated DateTime 06/11/2024 170.18 cm 39.2 kg/m2 735165.09 g Maria M Delgado [facility] 06/11/2024 09:40:10 Social History None recorded. Functional Status None recorded. Mental Status None recorded. Family History Nothing Reported. Medical History Condition Response Allergies/Hayfever N Heart Problems N Anxiety N Tonsil Infections N Emphysema N Migraines N Thyroid Problems N Depression N COPD N Developmental Delay N Glaucoma N Nasal or Sinus Problems N Anemia N Immune System Disorder N Anesthesia Complications N Heart Attack (ND) N Other Skin Condition N Diabetes N Rhinitis N Bleeding Disorder N Food Allergy N Hearing Loss Y Arthritis N Hyperlipidemia N Cancer N Stroke N Dementia N Nasal polyps N Asthma N Sleep Disorder N High Cholesterol N GERD/Reflux N Liver Disease N Headaches N Fibromyalgia N Hypertension N Speech Delay N Kidney Disease N Past Encounters Encounter ID Performer Location Encounter Start Date Encounter Closed Date Diagnosis/Indication Diagnosis SNOMED-CT Code Diagnosis ICD10 Code Diagnosis Note [id number] NISHI MARTINEZ MD [facility] [address] [address] 06/11/2024 09:08:50 06/11/2024 11:06:26 Sensorineural hearing loss of bilateral ears 192796707 H90.3 [id number] CHELE BECKETT PA-C [facility] [address] [address] 07/27/2024 11:09:30 07/27/2024 13:54:28 Postoperative visit 739387439 Z48.89 Sensorineu ral hearing loss of bilateral ears 593695109 H90.3 [id number] NISHI MARTINEZ MD [facility] [address] [place] [address] 11/22/2024 14:59:22 11/22/2024 15:39:12 Sensorineural hearing loss of bilateral ears 138381419 H90.3 Cochlear p rosthesis in situ 060973561 Z96.21 Health Concerns Section Related Observation LastModified by Organization Detai ls LastModified Time None Recorded Concern Status LastModified by Organization Details LastModified Time None Recorded Advance Directives Directive None Recorded Payers Insurance Date Sequence Insurance Name Policy Number Policy Davidson Covered Member ID Davidson Member ID Guarantor Name 06/11/2024 1 [place]: [employer] Otto Mcdaniels [id number] Otto Mcdaniels 06/11/2024 1 [place] [facility] Otto Mcdaniels [id number] Otto Mcdaniels 11/22/2024 1 [facility] (MEDICAID HMO) JOSUE Mcdaniels [id number] Otto Mcdaniels Notes Date Note Type Note [...] He underwent cochlear implant evaluation at the [facility] Cochlear [facility]plant Program back in October 2023 and was found to meet the audiologic candidacy criteria for cochlear implantation in both ears. Patient has expressed interest in implantation of the left ear. He has met with the Cochlear recipient customer solutions specialist Carley Hardy. Patient is accompanied by his today who is helping with Luxembourger translation. Patient did have a pneumococcal Prevnar 20 vaccine back in November. NISHI MARTINEZ MD [address] [place] [address], [place], [phone], [facility] - [facility] 06/11/2024 10:47:30 07/27/2024 text/html 48-year-old male presents following cochlear implant on 07/20/[address] Martinez. Patient is doing well post-operatively. Denies pain, dizziness, taste disturbance, numbness, worse hearing loss, or otorrhea. GAVIN GUZMAN MD [address] [facility],[place] [address], [place], [address], [facility] - [facility] 07/27/2024 13:45:39 11/22/2024 text/html Patient is statu s post placement of left cochlear implant on 07/20/2024. Uneventful postoperative course. Patient is following up with the [facility] Cochlear Implant Program for cochlear implant mapping. Patient is happy with the sound information he is receiving from the implant. He is asking about implantation of the right side. NISHI MARTINEZ MD [address] [facility] [address], [place], [address], [facility] 11/22/2024 15:38:41
--- OUTSIDE RECORDS SUMMARY | 2024-12-27 11:10 | XMS_ITS | Clinical Summary ---
Author Organization [facility] ity Address [address] [place] [address] Care Team Providers Care Solid Fiber Paster Operator Name Role Phone Unavailable Primary Care [...]
== END 2024-12-27 10:59 | disposition home or self-care (01) ==
LOC: HO.HGS 10:27
PROVIDERS: PCP Internal Medicine; Visit Provider Surgery
DX: K64.9 Unspecified hemorrhoids (principal)
CPT/HCPCS: 99024

== ENCOUNTER → 2024-12-27 10:26 | Outpatient (BNVA) | payer OTHER, SELFPAY | PROVIDERS: PCP Internal Medicine; Visit Provider Surgery | DX: K64.9 Unspecified hemorrhoids (principal); R19.7 Diarrhea, unspecified; Z98.890 Other specified postprocedural states | CPT/HCPCS: 99212 ==

== ENCOUNTER 2025-06-17 16:53 | Outpatient (AMB) | payer OTHER, SELFPAY ==
--- NOTE | 2025-06-17 17:07 | A.OFFPC_ITS ---
Vital Signs 06/17/25 17:09 Height 5 ft 7 in Weight 240 lb 6 oz BMI 37.6 BP 152/90 H Blood Pressure Location Lt brachial Respiration 16 Pulse 77 Pulse Source Pulse Oximeter Temp 97.8 F Temp Source Temporal Artery Scan Pulse Oximetry (%) 97 Oxygen Delivery Method Room Air Intake Visit Reasons: follow up Corn Miller Required: No Accompanied by: Self / Same As Patient Allergies No Known Allergies (No Known Allergies*) Allergy (Verified 06/17/25 17:23) Medication List - Last Reconciled 06/17/25 by Leni Rodriguez MD ascorbate calcium (vitamin C) 500 mg PO DAILY atorvastatin 10 mg PO DAILY 90 days docusate sodium (Colace) 100 mg PO BID docusate sodium (Colace) 100 mg PO BID ibuprofen 600 mg PO Q6H PRN ibuprofen 600 mg PO TID PRN mv,Ca,vws-byac-MX-lycopene 8 mg iron- 200 mcg-600 mcg (Centrum Ultra Men's) 1 tab PO DAILY oxycodone-acetaminophen 5-325 mg 1 tab PO Q6H PRN psyllium seed (sugar) (Metamucil (sugar) oral powder) 1 tbsp PO DAILY tramadol 50 mg PO TID PRN Tobacco use date assessed: 10/01/24 Dental Screening Dental Screen Date: 10/01/24 HPI HPI Comments History of Present Illness Details This is a 49-year-old male with hyperlipidemia, chronic idiopathic constipation that still complains of submandibular lymphadenopathy which had an ultrasound done last year. He also has nasal congestion most likely due to acute sinusitis and will receive antibiotic. On statins for hyperlipidemia. Constipation stable with docusate as needed. [facility] Medical History (Updated 06/17/25 @ 20:52 by Leni Rodriguez MD) Bleeding hemorrhoids Cochlear hearing loss Sinusitis Hyperlipidemia BMI 37.0-37.9, adult Morbid obesity Hearing loss Surgical History H/O hemorrhoidectomy Cochlear implant in place No history of previous surgery Family History Mother HIV (human immunodeficiency virus infection) Father HIV (human immunodeficiency virus infection) Son No problems noted. Son No problems noted. Son No problems noted. Daughter No problems noted. Daughter No problems noted. Daughter No problems noted. Social History Housing: Apartment Are you a primary healthcare administrative assistant to a significant other at home: No Do you presently have visiting nurse or other home services: No Alcohol intake: never Patient Tobacco Use Status: Never used Tobacco e-Cigarette/Vaping Use: Never Used Second Hand Smoke Exposure: No service: No Current occupational status: unemployed Cognitive needs: No Hearing needs: Yes Vision needs: Yes Questionnaire Thrive Questionnaire Date Thrive assessed: 12/03/24 What is your living situation today?: I have a steady place to live Within the past 12 months, did the food you bought not last and you didn't have the money to get more?: I choose not to answer this question Within the past 12 months, did you worry whether your food would run out before you got money to buy more?: I choose not to answer this question Do you have trouble paying for medicines?: No Do you have trouble getting transportation to medical appointments?: No Do you have trouble paying your heating and electricity bill?: No Do you have trouble taking care of your child, family member or friend?: No Do you have trouble with day-to-day activities such as bathing, preparing meals, shopping, managing finances, etc.?: No Are you currently unemployed and looking for a job?: I choose not to answer this question Are you interested in more education?: No Currently or been in a relationship where the following occur: I choose not to answer THRIVE Score: 0 MARTY-7 AMB Questionnaire MARTY-7 Date MARTY - 7 assessed: 10/01/24 Source: Developed by Drs. Romie Zabala, Addis Dc, Enoch Adams and colleagues, with an educational carri from [employer]. Review of Systems Const All systems reviewed & are unremarkable except as noted in HPI and below Card Denies chest pain at rest, Denies chest pain with activity, Denies edema, Denies irregular heart rhythm, Denies claudication, Denies dyspnea, Denies dyspnea on exertion, Denies orthopnea, Denies paroxysmal nocturnal dyspnea and Denies slow heart rate Resp Denies cough, Denies dyspnea and Denies dyspnea on exertion Physical exam (Primary Care) Vital Signs: Last Vital Signs Temp 97.8 F 06/17/25 17:09 Pulse 77 06/17/25 17:09 Resp 16 06/17/25 17:09 BP 152/90 H 06/17/25 17:09 Pulse Ox 97 06/17/25 17:09 Oxygen Delivery Method Room Air 06/17/25 17:09 BMI result Body Mass Index 37.6 Tobacco/Smoking Status: Tobacco use Status Tobacco use date assessed 10/01/24 06/17/25 17:08 Patient Tobacco Use Status Never used Tobacco 06/17/25 17:08 e-Cigarette/Vaping Use Never Used 06/17/25 17:08 Thrive Assessment: Date of Thrive Assessment Date Thrive assessed 12/03/24 06/17/25 17:08 Currently or been in a relationship where the following occur: I choose not to answer Resp Effort & Inspection: normal respiratory effort Auscultation: clear to auscultation bilaterally Cardio Jugular venous distension: no JVD Rate: regular rate Rhythm: regular rhythm Heart sounds: S1 normal heart sound present and S2 normal heart sound present Extrem General: Yes full ROM Coding Level of Care Code Est Pt Level 3 (90618) Diagnoses Submandibular lymphadenopathy R59.0 Acute sinusitis J01.90 Pure hypercholesterolemia E78.00 Hyperlipidemia type: pure hypercholesterolemia Chronic idiopathic constipation K59.04 Time Spent (min) 19 Assessment & Plan Assessment & Plan (1) Submandibular lymphadenopathy: Code(s): R59.0 - Localized enlarged lymph nodes Category: Medical (2) Acute sinusitis: Code(s): J01.90 - Acute sinusitis, unspecified Category: Medical (3) Hyperlipidemia: Code(s): E78.5 - Hyperlipidemia, unspecified Category: Medical Qualifiers: Hyperlipidemia type: pure hypercholesterolemia Qualified Code(s): E78.00 - Pure hypercholesterolemia, unspecified (4) Chronic idiopathic constipation: Code(s): K59.04 - Chronic idiopathic constipation Category: Medical Plan Continue same medications. Recheck blood pressure in 3 weeks by nurse navigator. Orders: Orders US soft tiss head and/or neck Today R59.0 - Localized enlarged lymph nodes Medications: New amoxicillin 500 mg PO BID 10 tabs 0RF 5 days
[2025-06-17 17:09] VITALS: BP 152/90; PULSE 77; RESP 16; TEMP 36.6; O2SAT 97; BMI 37.6
--- OUTSIDE RECORDS SUMMARY | 2025-06-17 18:56 | XMS_ITS | Data Portability ---
Author Organization [place] - [facility], Allergy Address [address] [place] [address] Care Team Providers Care Superintendent System Operation Name Role Phone IZAIAH ORLANDO Primary Care Provider [facility] Account Classification Clerk Assessment Encounter Date Assessment Date Assessment LastModified [...] be implanting the left ear with the [employer] CI 632implant. After full discussion, the patient would like to proceed with surgery. I have provided patient with the contact information for my burling and joining supervisor. We will begin the scheduling process and see the patient back at the time of surgery. Patient will not require medical clearance from their primary care provider preoperatively. [email or web address] Not available 06/11/2024 10:45:27 07/27/2024 07/27/2024 48 [...] He will continue to follow-up with the [facility] for cochlear implant [...] be implanting the right ear with the [employer] CI 632implant. After full discussion, the patient would like to proceed with surgery. I have provided patient with the contact information for my burling and joining supervisor. We will begin the scheduling process and see the patient back at the time of surgery. Patient will not require medical clearance from their primary care provider preoperatively. Patient has been specifically instructed to call [facility] to set up post implant activation and mapping sessions once he knows his surgical date [email or web address] Not available 11/22/2024 15:38:30 03/08/2025 03/08/2025 49 year old Uruguayan speaking male, s/p left cochlear implantation on 07/20/24 and mostly recently right cochlear implantation performed 03/01/[address] Martinez, presents for his first postoperative evaluation. Patient is doing well following surgery. Facial nerve is intact. There is a well-healed postauricular incision without evidence of wound dehiscence or jericho-implant effusion. No hemotympanum was appreciated on otoscopy. Patient may continue alternating between Tylenol and Motrin for pain management. Reviewed avoidance of heavy lifting and strenuous activity for the next couple of weeks. Patient's next appointment is already scheduled with Zurdo Mary for mapping on 03/11/25. Otherwise, he will follow up with Dr. Martinez in 3-4 months for reevaluation. All questions were answered. [email or web address] Not available 03/08/2025 21:25:58 Plan of Treatment Reminders Order Date Submit Date Provider Last Modified By Organization Details Last Modified Time Details Appointments Post Op 2025 11:20A M NISHI MARTINEZ MD Not available Not available Not available Lab None recorded. Referral None recorded. Procedures None recorded. Surgeries cochlear device implantat ion (SURG) 2024 025 [email or web address] Not available 11/23/2024 08:35:49 cochlear device implantat ion (SURG) 2023 024 Not available 06/11/2024 10:53:52 Imaging None recorded. Medication Orders None recorded. Patient TargetsNo targets recorded. Patient InstructionsNo instructions recorded. Reason for Referral None Reported. Results Created Date Observation Date Name Description Value Unit Range Abnormal Flag Note LastModifiedBy Organization Detail LastModifiedTime 06/12/2010/28/2023 audio gram No observ ation record ed. [email or web address] Not Available 05/27 09:29:17 06/12/2006/11/2024 CT, tempo ral bone, w/o contr ast No observ ation record ed. [email or web address] [facility] [address], [place], [address], 06/13/2024 16:33:29 06/13/20 24 06/11/2024 CT, tempo ral bone, w/o contr ast No observ ation record ed. [id number] [facility] [address] [facility] [address], [place], [address], 06/13/2024 16:33:29 07/23/19 25 07/23/2024 fluor oscop y (PROC ) No observ ation record ed. [address] [place], [address], 07/23/2024 13:07:29 03/05/20 25 03/01/2025 fluor oscop y evalu ation (PROC ) No observ ation record ed. [address], [address], 03/05/2025 17:30:53 Result Notes None recorded. Problems Name Problem SNOMED Code Status Onset Date Resolution Date Notes Provider Name and Address Organization Details Recorded Time Sensorineural hearing loss of bilateral ears 994586959 Active 2023 NISHI MARTINEZ MD [address], [address], [facility] - [facility] 20:25:39 Problem Notes None recorded. Procedures Surgical History Date Name Laterality Status Provider Name and Address Organization Details Recorded Time 03/01/20 25 COCHLEAR DEVICE IMPLANTATION (SURG) completed Satish Gannon [place] - [facility] 03/06/2025 15:18:59 07/20/19 25 COCHLEAR DEVICE IMPLANTATION (SURG) completed Satish Gannon [place] - [facility] [place] 07/23/2024 16:49:28 06/11/[address] temporal bones - Xoran completed NISHI MARTINEZ MD [address] [place] [address], [place], [address], [facility] - [facility] 06/11/2024 10:16:12 Imaging Results None recorded. Procedure Notes None recorded. Medical Equipment Implant [employer] Issuing Agency Serial Number Lot Number Status Provider Name and Address Organization Details Recorded Time Cochlear implanr FDA [id number] NISHI MARTINEZ MD [address], [place], [address] , [place] - [facility] 5 14:43:07 Cochlear implant FDA [id number] Y NISHI MARTINEZ MD [address], [place], [address] , [place] - [facility] 5 14:43:47 cochlear implant FDA [id number] Y NISHI MARTINEZ MD [address], [place], [address] , [place] - [facility] 5 15:13:13 Allergies No known drug allergies Medications Name Sig Start Date Stop Date Status Note LastModified by Organization Details LastModified Time atorvastati n 10 mg tablet TAKE 1 TABLET BY MOUTH DAILY FOR 90 DAYS active Not Available Not Available No t Available ofloxacin 0.3 % eye drops INSTILL 1 DROP INTO RIGHT EYE FOUR TIMES A DAY CONTINUE DIRECTED 06/11 completed Not Available Not Available Not Available tramadol 50 mg tablet TAKE 1 TABLET BY MOUTH 3 TIMES A DAY NEEDED FOR PAIN active Not Available Not Available No t Available hydrocortis one 2.5 % topical cream with perineal applicator APPLY TO AFFECTED AREA RECTALLY 2 TO 4 TIMES A DAY NEEDED FOR HEMORRHOI DS FOR 7 DAYS 11/22 completed Not Available Not Available Not Available prednisolon e acetate 1 % eye drops,suspe nsion PLEASE SEE ATTACHED FOR DETAILED DIRECTION S 06/11 completed Not Available Not Available Not Available docusate sodium 100 mg capsule TAKE 1 CAPSULE BY MOUTH TWICE A DAY active Not Available Not Available No t Available ibuprofen 600 mg tablet TAKE 1 TABLET BY MOUTH 3 TIMES A DAY NEEDED FOR PAIN active Not Available Not Available No t Available amoxicillin 875 mg-potassiu m clavulanate 125 mg tablet TAKE 1 TAB ORALLY 2 TIMES A DAY FOR 10 DAYS 06/11 completed Not Available Not Available Not Available oxycodone 5 mg tablet Take 1 tablet every 4-6 hours by oral route as needed for 3 days. 03/11 completed Not Available Not Available Not Available Vitamin D3 25 mcg (1,000 unit) tablet TAKE 1 TABLET BY MOUTH EVERY DAY active Not Available Not Available No t Available Vitals Date Recorded Body height Body weight Provider Name and Address Organization Details Last Updated DateTime 07/27/2024 170.18 cm 010629.09 g Izaiah Ingram [place] - [facility] 07/27/2024 11:30:23 Date Recorded Body height Body mass index (BMI) Body weight Provider Name and Address Organization Details Last Updated DateTime 03/08/2025 170.18 cm 37.6 kg/m2 815195.17 g Clarita Juan Diego [place] - [facility] 03/08/2025 15:38:48 Date Recorded Body height Body mass index (BMI) Body weight Provider Name and Address Organization Details Last Updated DateTime 06/11/2024 170.18 cm 39.2 kg/m2 215230.09 g Maria M Delgado [place] - [facility] 06/11/2024 09:40:10 Social History Question Answer Notes LastModified by [employer] Details LastModified Time Tobacco Smoking Status Never Smoker Izaiah minor [place] - [facility] 07/27/2024 11:30:50 What Type Of Helpdesk Specialist Do You Use? None Information not available 03/08/2025 Do You Have Any Pets? Yes Information not available 03/08/2025 Are You Passively Exposed To Smoke? No Information not available 03/08/2025 Are There Any Smokers In Your House? No Information not available 03/08/2025 Sex: Unknown Functional Status Question Answer Note LastModified by [employer] Details LastModified Time Do you use any illicit or recreational drugs? No Information not available 03/08/2025 Do you or have you ever used any other forms of tobacco or nicotine? No Information not available 03/08/2025 Mental Status None recorded. Family History Nothing Reported. Medical History Condition Response Allergies/Hayfever N Heart Problems N Anxiety N Tonsil Infections N Emphysema N Migraines N Thyroid Problems N COPD N Depression N Developmental Delay N Glaucoma N Nasal [...] Diagnosis SNOMED-CT Code Diagnosis ICD10 Code Diagnosis IMO Codes Diagnosis Note [id number] NISHI MARTINEZ MD [facility] [address] [address] 06/11/2024 09:08:50 06/11/2024 11:06:26 Sensorineural hearing loss of bilateral ears 186286177 H90.3 [id number] CHELE BECKETT PA-C [facility] [address] [address] 07/27/2024 11:09:30 07/27/2024 13:54:28 Postoperative visit 818163280 Z48.89 Sensorineu ral hearing loss of bilateral ears 530956193 H90.3 [id number] NISHI MARTINEZ MD [facility] [address] [address] 11/22/2024 14:59:22 11/22/2024 15:39:12 Sensorineural hearing loss of bilateral ears 206342540 H90.3 Cochlear p rosthesis in situ 398648738 Z96.21 [id number] SHANT PERSON [facility] [address] [address] 03/08/2025 14:49:05 03/08/2025 15:47:55 Sensorineural hearing loss of bilateral ears 579551588 H90.3 Cochlear p rosthesis in situ 333923364 Z96.21 [id number] Health Concerns Section Related Observation LastModified by Organization Detai ls LastModified Time None Recorded Concern Status LastModified by Organization Details LastModified Time None Recorded Advance Directives Directive None Recorded Payers Insurance Date Sequence Insurance Name Policy Number Policy Davidson Covered Member ID Davidson Member ID Guarantor Name 06/11/2024 1 [place]IC[place]: [employer] Otto Mcdaniels [id number] Otto Mcdaniels 06/11/2024 1 [facility] Otto Mcdaniels [id number] Otto Mcdaniels 03/07/2025 1 [facility] HE[facility] NET PLAN (MEDICAID HMO) JOSUE Mcdaniels [id number] Otto Mcdaniels Notes Date Note Type Note Provider Name and Address Organization Details Recorded Time 06/11/2024 text/html 48-year-old Uruguayan-speaking male with bilateral severe to profound sensorineural hearing loss.. Patient started losing his hearing at age 6 and the hearing loss has been progressive over the years. He did not start using hearing aids until he was about 26 years of age but has been using them consistently since the early . He underwent cochlear implant evaluation at the [facility] back in October 2023 and was found to meet the audiologic candidacy criteria for cochlear implantation in both ears. Patient has expressed interest in implantation of the left ear. He has met with the Cochlear recipient java solutions architect Carley Hardy. Patient is accompanied by his today who is helping with Uruguayan translation. Patient did have a pneumococcal Prevnar 20 vaccine back in November. NISHI MARTINEZ MD 100 [facility],[address], [address], [facility] 06/11/2024 10:47:30 07/27/2024 text/html ROS as noted in the HPI 48-year-old male presents following cochlear implant on 07/20/[address] Martinez. Patient is doing well post-operatively. Denies pain, dizziness, taste disturbance, numbness, worse hearing loss, or otorrhea. GAVIN GUZMAN MD 100 [facility],[place] [address], [place], [address], [facility] 07/27/2024 13:45:39 11/22/2024 text/html Patient is status post placement of left cochlear implant on 07/20/2024. Uneventful postoperative course. Patient is following up with the [facility] for cochlear implant mapping. Patient is happy with the sound information he is receiving from the implant. He is asking about implantation of the right side. NISHI MARTINEZ MD 100 [facility],[address], [address], [place] - [facility] 11/22/2024 15:38:41 03/08/2025 text/html ROS as noted in the HPI 49 year old [place]ruguayan speaking male, s/p left cochlear implantation on 07/20/24 and mostly recently right cochlear implantation performed 03/01/[address] Martinez, presents for his first postoperative evaluation. Patient is doing well. He does endorse mild periauricular discomfort and taste disturbance. Denies otorrhea, dizziness, facial numbness and asymmetry. Patient is scheduled to meet with Zurdo Mary on 03/11/25. ROMA HOOKS MD [address] [place] [address], [place], [address], [place] - [facility] 03/10/2025 07:11:51
--- OUTSIDE RECORDS SUMMARY | 2025-06-17 18:56 | XMS_ITS | Clinical Summary ---
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 Name Role Phone Unavailable Primary Care [...] of 3 - 19+ 3-dose series) 10/04/1995 Depression Screening 06/27/2024 COVID-19 Vaccine (1 - 2024-2 6 season) 2025 Influenza Vaccine (#1) 2025 RSV Immunization Adult Patie nts (1 - 1-dose 75+ series) 10/04/2051 HIB Vaccines Aged Out No longer eligi [...] 5 Years) and At-Risk Patients (6 to 49 Years) Aged Out No longer eligible b ased on patient's age to complete this topic RSV Immunization Patients Un brigitte 20 months Aged Out No longer eligible b ased on patient's age to complete this topic Varicella Vaccines Aged Out No longer eligible based on patient's age to complete this topic
== END 2025-06-17 17:33 | disposition home or self-care (01) ==
LOC: HO.HMCH 16:54
PROVIDERS: PCP Internal Medicine; Visit Provider Internal Medicine
DX: R59.0 Localized enlarged lymph nodes (principal); J01.90 Acute sinusitis, unspecified; E78.00 Pure hypercholesterolemia, unspecified; K59.04 Chronic idiopathic constipation

== ENCOUNTER → 2025-06-17 16:53 | Outpatient (BNVA) | payer OTHER, SELFPAY | PROVIDERS: PCP Internal Medicine; Visit Provider Internal Medicine | DX: J01.90 Acute sinusitis, unspecified (principal); R59.0 Localized enlarged lymph nodes; E78.00 Pure hypercholesterolemia, unspecified; K59.04 Chronic idiopathic constipation | CPT/HCPCS: 99212 ==